=== PATIENT | female | born 1940 | race Caucasian/White ===

== ENCOUNTER → 2016-11-30 | Outpatient (CLI) | payer MEDICARE, OTHER ==
--- NOTE | 2016-11-30 17:01 | XR ---
EXAMINATION TYPE: XR chest 2V DATE OF EXAM: 11/30/2016 4:49 PM COMPARISON: Chest x-ray March 11, 2011. HISTORY: Malignant neoplasm of January per order. TECHNIQUE: Frontal and lateral views of the chest are obtained. FINDINGS: There is new right internal jugular Mediport catheter with tip in SVC. There is chronic rig ht pleural change without suspicious new focal air space opacity, pleural effusion, or pneumothorax s een. There is left basilar linear scarring or atelectasis. The cardiac silhouette size is within norm al limits. Multilevel spurring in the thoracic spine is redemonstrated. IMPRESSION: Left basilar linear scarring and/or atelectasis.
== END | disposition home or self-care (01) ==
LOC: RADXRMAIN 16:37
PROVIDERS: ATTEND Registered Nurse Oncology
DX: C06.0 Malignant neoplasm of cheek mucosa (principal); G89.3 Neoplasm related pain (acute) (chronic); C00.8 Malignant neoplasm of overlapping sites of lip; Z71.3 Dietary counseling and surveillance
CPT/HCPCS: 71020

== ENCOUNTER 2016-12-08 04:02 | Inpatient (IN) | payer MEDICARE, OTHER ==
[2016-12-08 04:42] LABS: Basophils % (A) 0 %; CH 29.1; Eosinophils # (A) 0.3 k/uL (0-0.7); Eosinophils % (A) 3 %; HCT 26.5 % (34.0-46.0); HDW 3.47; HGB 8.6 gm/dL (11.4-16.0); Luc # (Auto) 0.19; Luc % (Auto) 2; Lymphocytes # (A) 0.4 k/uL (1.0-4.8); Lymphocytes % (A) 4 %; MCH 28.5 pg (25.0-35.0); MCHC 32.3 g/dL (31.0-37.0); MCV 88.2 fL (80.0-100.0); Monocytes # (A) 0.7 k/uL (0-1.0); Monocytes % (A) 7 %; Neutrophils # (A) 8.8 k/uL (1.3-7.7); Neutrophils % (A) 85 %; Poikilocytosis Slight; RDW 15.9 % (11.5-15.5); WBC 10.4 k/uL (3.8-10.6); WBC (Perox) 10.85
[2016-12-08 04:51] LABS: ALT 27 U/L (9-52); AST 24 U/L (14-36); Alkaline Phosphatase 67 U/L (38-126); Anion Gap 8 mmol/L; Blood Urea Nitrogen 28 mg/dL (7-17); Calcium 9.4 mg/dL (8.4-10.2); Carbon Dioxide 32 mmol/L (22-30); Chloride 81 mmol/L (98-107); Glucose 114 mg/dL (74-99); Magnesium 1.3 mg/dL (1.6-2.3); Non-African American GFR(MDRD) >60 (>60 ml/min/1.73 sqM); Potassium 4.6 mmol/L (3.5-5.1); Sodium 121 mmol/L (137-145); Total Bilirubin 0.4 mg/dL (0.2-1.3); Total Protein 6.8 g/dL (6.3-8.2)
[2016-12-08 04:59] LABS: Partial Thromboplastin Time 23.6 sec (22.0-30.0); Prothrombin Time 10.3 sec (9.0-12.0)
--- NOTE | 2016-12-08 05:03 | ED ---
General Adult HPI - General Chief complaint: Shortness of Breath Stated complaint: SOB Time Seen by Provider: 12/08/16 04:05 Source: patient, RN notes reviewed Mode of arrival: ambulatory Limitations: no limitations - History of Present Illness Initial comments: This is a 76-year-old female with a past medical history significant for recurrent lip cancer. Patient states it's inoperable slipping doing chemotherapy and she's had one dose. Patient comes in today because she woke up tonight feeling as though she short of breath. Patient denies any fever or chills. Patient states she does have a cough but she's always producing mucus such that she is always coughing. Patient denies any chest pain or palpitation. Patient denies any injury or trauma. Patient denies headache patient denies numbness weakness - Related Data Allergies Allergy/AdvReac Type Severity Reaction Status Date / Time No Known Allergies Allergy Verified 12/08/16 04:10 Review of Systems ROS Statement: Those systems with pertinent positive or pertinent negative responses have been documented in the HPI. ROS Other: All systems not noted in ROS Statement are negative. Past Medical History Past Medical History: Hyperlipidemia, Hypertension Additional Past Medical History / Comment(s): mouth CA History of Any Multi-Drug Resistant Organisms: None Reported Past Surgical History: Heart Catheterization With Stent Additional Past Surgical History / Comment(s): Oral surgery Past Psychological History: No Psychological Hx Reported Smoking Status: Never smoker Past Alcohol Use History: None Reported Past Drug Use History: None Reported General Exam - General Exam Comments Initial Comments: GENERAL: Patient is well-developed and well-nourished. Patient is nontoxic and well- hydrated and is in mild distress. ENT: Neck is soft and supple. No significant lymphadenopathy is noted. Oropharynx is clear. Moist mucous membranes. Neck has full range of motion without eliciting any pain. Right side of the patient's lip is edematous and tender to palpation and swollen down to just underneath the mandible she states this is normal because of the recurrent cancer EYES: The sclera were anicteric and conjunctiva were pink and moist. Extraocular movements were intact and pupils were equal round and reactive to light. Eyelids were unremarkable. PULMONARY: Unlabored respirations. Good breath sounds bilaterally. No audible rales rhonchi or wheezing was noted. CARDIOVASCULAR: There is a regular rate and rhythm without any murmurs gallops or rubs. ABDOMEN: Soft and nontender with normal bowel sounds. No palpable organomegaly was noted. There is no palpable pulsatile mass. SKIN: Skin is clear with no lesions or rashes and otherwise unremarkable. NEUROLOGIC: Patient is alert and oriented x3. Cranial nerves II through XII are grossly intact. Motor and sensory are also intact. Normal speech, volume and content. Symmetrical smile. MUSCULOSKELETAL: Normal extremities with adequate strength and full range of motion. LYMPHATICS: No significant lymphadenopathy is noted PSYCHIATRIC: Normal psychiatric evaluation. Limitations: no limitations Course Vital Signs 12/08/16 04:04 Temperature 98.7 F Pulse Rate 90 Respiratory 20 Rate Blood Pressure 140/68 O2 Sat by Pulse 96 Oximetry Medical Decision Making - Medical Decision Making EKG shows normal sinus rhythm at 82 bpm NE interval is on a 58 QRS is 70 QT interval 362 QT C is 422. Patient's EKG shows no ST segment elevation or depression or T wave abnormalities are noted Chest x-ray is normal. - Lab Data Result diagrams: 12/08/16 04:30 12/08/16 04:30 Lab Results 12/08/16 12/08/16 12/08/16 Range/Units 04:30 04:30 04:30 WBC 10.4 (3.8-10.6) k/uL RBC 3.00 L (3.80-5.40) m/uL Hgb 8.6 L (11.4-16.0) gm/dL Hct 26.5 L (34.0-46.0) % MCV 88.2 (80.0-100.0) fL MCH 28.5 (25.0-35.0) pg MCHC 32.3 (31.0-37.0) g/dL RDW 15.9 H (11.5-15.5) % Plt Count 296 (150-450) k/uL Neutrophils % 85 % Lymphocytes % 4 % Monocytes % 7 % Eosinophils % 3 % Basophils % 0 % Neutrophils # 8.8 H (1.3-7.7) k/uL Lymphocytes # 0.4 L (1.0-4.8) k/uL Monocytes # 0.7 (0-1.0) k/uL Eosinophils # 0.3 (0-0.7) k/uL Basophils # 0.0 (0-0.2) k/uL Poikilocytosis Slight PT (9.0-12.0) sec INR (<1.1) APTT (22.0-30.0) sec D-Dimer (<0.60) mg/L FEU Sodium 121 L (137-145) mmol/L Potassium 4.6 (3.5-5.1) mmol/L Chloride 81 L (98-107) mmol/L Carbon Dioxide 32 H (22-30) mmol/L Anion Gap 8 mmol/L BUN 28 H (7-17) mg/dL Creatinine 0.67 (0.52-1.04) mg/dL Est GFR (MDRD) Af Amer >60 (>60 ml/min/1.73 sqM) Est GFR (MDRD) Non-Af >60 (>60 ml/min/1.73 sqM) Glucose 114 H (74-99) mg/dL Calcium 9.4 (8.4-10.2) mg/dL Magnesium 1.3 L (1.6-2.3) mg/dL Total Bilirubin 0.4 (0.2-1.3) mg/dL AST 24 (14-36) U/L ALT 27 (9-52) U/L Alkaline Phosphatase 67 (38-126) U/L Total Creatine Kinase 24 L (30-135) U/L CK-MB (CK-2) 0.7 (0.0-2.4) ng/mL CK-MB (CK-2) Rel Index 2.9 Troponin I <0.012 (0.000-0.034) ng/mL Total Protein 6.8 (6.3-8.2) g/dL Albumin 3.2 L (3.5-5.0) g/dL 12/08/16 Range/Units 04:30 WBC (3.8-10.6) k/uL RBC (3.80-5.40) m/uL Hgb (11.4-16.0) gm/dL Hct (34.0-46.0) % MCV (80.0-100.0) fL MCH (25.0-35.0) pg MCHC (31.0-37.0) g/dL RDW (11.5-15.5) % Plt Count (150-450) k/uL Neutrophils % % Lymphocytes % % Monocytes % % Eosinophils % % Basophils % % Neutrophils # (1.3-7.7) k/uL Lymphocytes # (1.0-4.8) k/uL Monocytes # (0-1.0) k/uL Eosinophils # (0-0.7) k/uL Basophils # (0-0.2) k/uL Poikilocytosis PT 10.3 (9.0-12.0) sec INR 1.0 (<1.1) APTT 23.6 (22.0-30.0) sec D-Dimer 0.37 (<0.60) mg/L FEU Sodium (137-145) mmol/L Potassium (3.5-5.1) mmol/L Chloride (98-107) mmol/L Carbon Dioxide (22-30) mmol/L Anion Gap mmol/L BUN (7-17) mg/dL Creatinine (0.52-1.04) mg/dL Est GFR (MDRD) Af Amer (>60 ml/min/1.73 sqM) Est GFR (MDRD) Non-Af (>60 ml/min/1.73 sqM) Glucose (74-99) mg/dL Calcium (8.4-10.2) mg/dL Magnesium (1.6-2.3) mg/dL Total Bilirubin (0.2-1.3) mg/dL AST (14-36) U/L ALT (9-52) U/L Alkaline Phosphatase (38-126) U/L Total Creatine Kinase (30-135) U/L CK-MB (CK-2) (0.0-2.4) ng/mL CK-MB (CK-2) Rel Index Troponin I (0.000-0.034) ng/mL Total Protein (6.3-8.2) g/dL Albumin (3.5-5.0) g/dL Disposition Clinical Impression: Dyspnea, Hyponatremia, Anemia, Hypomagnesemia Disposition: ADMITTED IP TO [facility] Time of Disposition: 05:31
[2016-12-08 05:04] LABS: Creatine Kinase 24 U/L (30-135)
[2016-12-08 05:17] LABS: Creatine Kinase MB 0.7 ng/mL (0.0-2.4); Troponin I <0.012 ng/mL (0.000-0.034)
--- NOTE | 2016-12-08 05:21 | XR ---
EXAM: XR Chest, 2 Views CLINICAL HISTORY: Reason: difficulty breathing TECHNIQUE: Frontal and lateral views of the chest. COMPARISON: No relevant prior studies available. FINDINGS: Lungs: Unremarkable. No consolidation. Pleural space: Unremarkable. No pneumothorax. Heart: Unremarkable. No cardiomegaly. Mediastinum: Unremarkable. Bones/joints: Unremarkable. Vasculature: Right chest port with tip in the SVC at the level of the right hilum. IMPRESSION: No acute cardiopulmonary disease.
[2016-12-08] MEDS ORDERED: MAGNESIUM SULFATE-D5W PMX 1 GM in DEXTROSE/WATER 1 100ML.BAG IVPB ONE (05:32)
[2016-12-08] MEDS ORDERED: SODIUM CHLORIDE 0.9% 1,000 ML IV ONE (05:34)
[2016-12-08] MEDS ORDERED: HYDROcodone/APAP 10-325MG 1 EACH TAB PO STA (07:14)
[2016-12-08] MEDS ORDERED: guaiFENesin SYRUP 100MG/5ML 200 MG/10 ML CUP PEG/G-TUBE PRN (08:30)
[2016-12-08] MEDS ORDERED: HYDROcodone/APAP 10-325MG 1 EACH TAB PEG/G-TUBE SCH (08:30)
[2016-12-08] MEDS: ONDANSETRON 4 MG/2 ML VIAL IVP PRN ×2 (08:50→20:58)
[2016-12-08] MEDS: HYDROcodone/APAP 10-325MG 1 EACH TAB PEG/G-TUBE PRN ×3 (11:28→22:47)
[2016-12-08 11:35] LABS: Glucose,Whole Blood 146 mg/dL (75-99)
[2016-12-08] MEDS: FERROUS SULFATE ORAL ELIXIR 300 MG/5 ML CUP PEG/G-TUBE SCH ×2 (11:44→20:35)
[2016-12-08] MEDS: POTASSIUM CHLORIDE ORAL LIQUID 40 MEQ/30 ML CUP PEG/G-TUBE SCH ×2 (11:44→20:35)
[2016-12-08] MEDS: SCOPOLAMINE 1.5MG/72HR PATCH TRANSDERM SCH (11:45)
[2016-12-08] MEDS: OXYBUTYNIN CHLORIDE 5 MG TAB PEG/G-TUBE SCH ×2 (11:45→20:35)
[2016-12-08] MEDS: ASPIRIN 325 MG TAB PEG/G-TUBE SCH (11:45)
[2016-12-08] MEDS: MAGNESIUM OXIDE 400 MG TAB PEG/G-TUBE SCH ×2 (11:45→20:35)
[2016-12-08] MEDS: CARVEDILOL 3.125 MG TAB PEG/G-TUBE SCH ×2 (11:45→17:40)
[2016-12-08] MEDS: LEVOTHYROXINE 75 MCG TAB PEG/G-TUBE SCH (11:46)
--- NOTE | 2016-12-08 12:08 | P.HPIM ---
History of Present Illness H&P Date: 12/08/16 Chief Complaint: Shortness of breath This is a 76-year-old female, patient of [facility]. Patient has a known past medical history of lip carcinoma in which she is on chemotherapy. And has received radiation treatment. She also has a known history of iron deficiency anemia, hyperlipidemia, hypertension, coronary artery disease with cardiac stent, diabetes mellitus, hypothyroidism and hypertension. Patient presents to the emergency room with complaints of shortness of breath that started last night. She was unable to get comfortable try to lay on the couch was still having shortness of breath. She does admit to having a cough at times but mostly to clear the secretions of her mouth. She denies any fevers chills or sweats. Denies any chest pain. Denies any nausea or vomiting. Denies any bowel movement changes or urinary symptoms. She is unable to take anything oral everything goes through her PEG tube nutrition-morataya and medications. D-dimer was negative. Chest x-ray negative. White count normal at 10.4. Patient reports that her chemo medication side effect is shortness of breath and therefore she came into the emergency room for further evaluation. Oncology has been consulted. Oncology had stopped the chemo medication. Patient shortness of breath is at has improved. She was hyponatremic with a sodium of 121 and hypomagnesemia lesion level I.3. She received magnesium supplement and is currently on IV fluids. Hemoglobin is 8.6. She denies any active bleeding. Denies any bright red blood in stools or black tarry stools. She does report that her stools are usually black because she takes iron supplement. And it appears to be chronic for patient. I do not know her baseline. However she is on iron supplement. And has been receiving chemo treatments for her cancer. She reports having colonoscopy about 5 years ago that was negative. Review of Systems Please refer to HPI otherwise unremarkable Past Medical History Past Medical History: Coronary Artery Disease (CAD), Cancer, Chest Pain / Angina , Diabetes Mellitus, Hyperlipidemia, Hypertension, Osteoarthritis (OA), Thyroid Disorder Additional Past Medical History / Comment(s): Recurrent lip cancer, developed spot in R cheek which became a mass-has he 35 radiation txs and 9 chemo tx in 2013, cancer is now in jaw bone too-has had 2 lip surgeries and is currently received 1 dose of Keytruda and was due today for 2nd tx, NPO, NIDDM, hypothyroid. History of Any Multi-Drug Resistant Organisms: None Reported Past Surgical History: Heart Catheterization With Stent Additional Past Surgical History / Comment(s): Lower lip surgery x 2 with second surgery requiring skin graft from L thigh, peg tube placement, mediport, colonoscopy-normal, all teeth removed r/t radiation tx, PCI with stent Past Anesthesia/Blood Transfusion Reactions: No Reported Reaction Date of Last Stent Placement:: 02/13/11 Past Psychological History: No Psychological Hx Reported Additional Psychological History / Comment(s): Pt resides with a daughter, Ana who is also her rural mail contractor. Ana works 5 minutes from home-dayshift and calls at lunch time to check on pt. Pt no longer drives, natalie takes her to [employer]. She uses no assistive devices. No home care. Pt has continuous tube feedings of glucerna (5 cans a day) which infuse from 7pm-11am. Smoking Status: Never smoker Past Alcohol Use History: None Reported Past Drug Use History: None Reported - Past Family History Father Family Medical History: Congestive Heart Failure (CHF) Additional Family Medical History / Comment(s): Father of CHF at the age of 75yrs. Mother Family Medical History: Cancer, Vascular Disorder Additional Family Medical History / Comment(s): Mother was a breast cancer survivor. She while having surgery for an abdominal aneurysm at the age of 78yrs. Medications and Allergies Home Medications Medication Instructions Recorded Confirmed Type Aspirin 325 mg PEG/G-TUBE DAILY 12/08/16 12/08/16 History Carvedilol [Coreg] 3.125 mg PEG/G-TUBE BID 12/08/16 12/08/16 History Cholecalciferol [Vitamin D3] 5,000 unit PEG/G-TUBE DAILY 12/08/16 12/08/16 History Ferrous Sulfate [Feosol] 325 mg PEG/G-TUBE BID 12/08/16 12/08/16 History Hydrocodone/Acetaminophen [[place] 1 tab PEG/G-TUBE Q4H 12/08/16 12/08/16 History 10-325] Levothyroxine Sodium [Synthroid] 75 mcg PEG/G-TUBE DAILY 12/08/16 12/08/16 History Lisinopril-Hctz 20-25 mg 0.5 tab PEG/G-TUBE QAM 12/08/16 12/08/16 History [Zestoretic 20-25] Magnesium Oxide 400 mg PEG/G-TUBE BID 12/08/16 12/08/16 History Mucinex Liquid 10 ml PEG/G-TUBE DAILY PRN 12/08/16 12/08/16 History Ondansetron HCl [Zofran Oral Soln] 8 mg PEG/G-TUBE BID 12/08/16 12/08/16 History Ondansetron HCl [Zofran] 8 mg PEG/G-TUBE DAILY PRN 12/08/16 12/08/16 History Oxybutynin Chloride 5 mg PEG/G-TUBE BID 12/08/16 12/08/16 History Potassium Chloride [Klor-Con] 20 meq PEG/G-TUBE BID 12/08/16 12/08/16 History Simvastatin [Zocor] 40 mg PEG/G-TUBE HS 12/08/16 12/08/16 History fentaNYL 25MCG/HR PATCH [Duragesic 1 patch TRANSDERM Q72H 12/08/16 12/08/16 History 25MCG/HR] metFORMIN HCL [Glucophage] 500 mg PEG/G-TUBE HS 12/08/16 12/08/16 History Allergies Allergy/AdvReac Type Severity Reaction Status Date / Time No Known Allergies Allergy Verified 12/08/16 07:26 Physical Exam Vitals: Vital Signs Temp Pulse Pulse Resp BP BP Pulse Ox 12/08/16 07:00 97.3 F L 92 16 157/65 99 12/08/16 06:08 83 16 164/79 96 Intake and Output 12/07/16 12/08/16 12/08/16 22:59 06:59 14:59 Other: Voiding Method Toilet Weight 53.977 kg Patient Weight 12/09/16 06:59 Weight 53.977 kg Mouth: Right side of patient's mouth and cheek are swollen. Patient has difficulty opening her mouth. Head normocephalic Neck supple Lungs clear to auscultation bilaterally no wheezing or crackles Heart regular rate and rhythm S1-S2, no rub or gallop Abdomen is soft nontender nondistended positive bowel sounds no hepatosplenomegaly Extremities no edema Neuro alert and orientated to 3 Results CBC & Chem 7: 12/08/16 04:30 12/08/16 04:30 Labs: Abnormal Lab Results - Last 24 Hours (Table) 12/08/16 Range/Units 11:20 POC Glucose (mg/dL) 146 H (75-99) mg/dL Thrombosis Risk Factor Assmnt - Choose All That Apply Any of the Below Risk Factors Present?: Yes Other Risk Factors: Yes Each Risk Factor Represents 2 Points: Malignancy Each Risk Factor Represents 3 Points: Age 75 years or older Other congenital or acquired thrombophilia - If yes, enter type in comment: No Thrombosis Risk Factor Assessment Total Risk Factor Score: 5 Thrombosis Risk Factor Assessment Level: High Risk Assessment and Plan Plan: 1. Shortness of breath: Exact etiology unclear. Possibly related to chemo medication. Chest x-ray negative. D-dimer negative. Symptoms have shown improvement. 2. Hyponatremia: Sodium 121 on admission. Zestoretic on hold. Also could be a side effect from her chemo medication. Patient receiving IV fluids. Repeat labs in a.m. 3. 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 Oncology consulted. Chemo treatment currently placed on hold. will await further away oncology recommendations 4. Hypomagnesemia: Patient receiving magnesium supplement. Repeat labs in a.m. 5. Anemia with known iron deficiency anemia and possibly chemo-induced anemia. Continue iron supplement. Continue to monitor hemoglobin. 6. Hypochloremia: Continue monitor chloride level. Zestoretic on hold 7. Diabetes mellitus type 2: Metformin on hold. Add sliding scale coverage with Accu-Cheks every before meals and at bedtime 8. Essential hypertension: Blood pressure stable continue with Coreg 9. Hyperlipidemia continue Lipitor 10. History of coronary artery disease with previous cardiac stents 11. Hypothyroidism continue Synthroid DVT prophylaxis SCDs Resume tube feedings and home medications Time with Patient: Greater than 30 (Greater than 50% of the total time spent in counseling and coordination of care.I performed an examination of the patient and discussed their management with the physician Trouble Clerk. I have reviewed the Physician Trouble Clerk's notes and agree with the documented findings and plan of care)
[2016-12-08] MEDS: CHOLECALCIFEROL 1,000 UNIT TAB PEG/G-TUBE SCH (13:17)
[2016-12-08] MEDS: SUCRALFATE 1 GM TAB PO SCH ×3 (13:18→20:34)
[2016-12-08] MEDS: INSULIN LISPRO (humaLOG) 300 UNIT/3 ML VIAL SQ SCH ×3 (13:52→21:44)
[2016-12-08] MEDS: SODIUM CHLORIDE 0.9% 1,000 ML IV SCH (15:43)
[2016-12-08 16:21] LABS: Basophils % (A) 0 %; CH 28.8; CHCM 33.3; Eosinophils # (A) 0.2 k/uL (0-0.7); Eosinophils % (A) 3 %; HCT 26.7 % (34.0-46.0); HDW 3.65; HGB 9.1 gm/dL (11.4-16.0); Hypochromasia Slight; Luc % (Auto) 3; Lymphocytes # (A) 0.3 k/uL (1.0-4.8); Lymphocytes % (A) 4 %; MCH 29.5 pg (25.0-35.0); MCV 86.7 fL (80.0-100.0); Mean Platelet Volume 6.6; Monocytes # (A) 0.6 k/uL (0-1.0); Monocytes % (A) 8 %; Neutrophils # (A) 6.2 k/uL (1.3-7.7); Neutrophils % (A) 82 %; Poikilocytosis Slight; RBC 3.07 m/uL (3.80-5.40); RDW 15.4 % (11.5-15.5); WBC 7.5 k/uL (3.8-10.6); WBC (Perox) 7.51
--- NOTE | 2016-12-08 16:30 | P.CONS ---
History of Present Illness - Reason for Consult Consult date: 12/08/16 anemia, hyponatremia Requesting physician: Sammy Wilson - Chief Complaint ELIZABETH - History of Present Illness Ms. Mathias is a pt well known to our practice who presented in 07/28 with raised , inflamed areas involving her right buccal mucosa, biopsies revealed fungal infection/infestation, she was treated for the same with improvement but within a few months the mass recurred, repeat biopsies in 11/27 revealed near resolution of the fungal infestation but now development of atypia, photodynamic therapy was recommended but the pt could not afford it. She had care at [facility] and then she subsequently transferred to Dr. Vázquez at [facility]. She had progression with development of raised, ulcerated plaque like growths involving the upper and lower lips on the right. 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 She was then referred to Dr. Sweeney for further evaluation and recommendations. Staging PET revealed activity medial to the mandible and possibly in 1-2 nodes in the rt superior cervical chain. She had extraction of carious teeth on the right and then was started on weekly cisplatin with concurrent radiation 05/05/16 and she completed treatment around 06/24/16, pt overall had poor tolerance to therapy requiring hydration and electrolyte replacement. Repeat PET scan on 08/12/2016 was reported as single area of persistent disease at right maxillary sinus. Unfortunately she developed recurrent disease in September 2016 when she presented with worsening right buccal ulcer. Dr. Vázquez evaluated her, CT scan of neck on 10/03/2016 revealed 6 cm area of ulceration in right buccal mucosa extending to oral tongue and bilateral cervical nodes. Biopsy on 10/14/2016 which confirmed recurrent/persistent disease, felt unresectable. She was started on nivolumab and has had 2 cycles of treatment. She has PEG tube as dysphagia/odynophagia is severe, she does not take anything PO, she cannot manage her secretions and has to expectorate all secretions. Pt was having ELIZABETH that brought her to the hospital, she denied fever, she c/o pain in the area of the tumor but admits that the swelling is improved, she has "burning" in her throat and she will vomit at times, no abd pain or cramping, PEG tube is functioning, denies diarrhea or constipation. Review of Systems All systems: negative Constitutional: Reports as per HPI Past Medical History Past Medical History: Coronary Artery Disease (CAD), Cancer, Chest Pain / Angina , Diabetes Mellitus, Hyperlipidemia, Hypertension, Osteoarthritis (OA), Thyroid Disorder Additional Past Medical History / Comment(s): Recurrent lip cancer, developed spot in R cheek which became a mass-has he 35 radiation txs and 9 chemo tx in 2013, cancer is now in jaw bone too-has had 2 lip surgeries and is currently received 1 dose of Keytruda and was due today for 2nd tx, NPO, NIDDM, hypothyroid. History of Any Multi-Drug Resistant Organisms: None Reported Past Surgical History: Heart Catheterization With Stent Additional Past Surgical History / Comment(s): Lower lip surgery x 2 with second surgery requiring skin graft from L thigh, peg tube placement, mediport, colonoscopy-normal, all teeth removed r/t radiation tx, PCI with stent Past Anesthesia/Blood Transfusion Reactions: No Reported Reaction Date of Last Stent Placement:: 02/13/11 Past Psychological History: No Psychological Hx Reported Additional Psychological History / Comment(s): Pt resides with a daughter, Ana who is also her precision jig grinder. Ana works 5 minutes from home-dayshift and calls at lunch time to check on pt. Pt no longer drives, natalie takes her to [employer]. She uses no assistive devices. No home care. Pt has continuous tube feedings of glucerna (5 cans a day) which infuse from 7pm-11am. Smoking Status: Never smoker Past Alcohol Use History: None Reported Past Drug Use History: None Reported - Past Family History Father Family Medical History: Congestive Heart Failure (CHF) Additional Family Medical History / Comment(s): Father of CHF at the age of 75yrs. Mother Family Medical History: Cancer, Vascular Disorder Additional Family Medical History / Comment(s): Mother was a breast cancer survivor. She while having surgery for an abdominal aneurysm at the age of 78yrs. Medications and Allergies Home Medications Medication Instructions Recorded Confirmed Type Aspirin 325 mg PEG/G-TUBE DAILY 12/08/16 12/08/16 History Carvedilol [Coreg] 3.125 mg PEG/G-TUBE BID 12/08/16 12/08/16 History Cholecalciferol [Vitamin D3] 5,000 unit PEG/G-TUBE DAILY 12/08/16 12/08/16 History Ferrous Sulfate [Feosol] 325 mg PEG/G-TUBE BID 12/08/16 12/08/16 History Hydrocodone/Acetaminophen [[place] 1 tab PEG/G-TUBE Q4H 12/08/16 12/08/16 History 10-325] Levothyroxine Sodium [Synthroid] 75 mcg PEG/G-TUBE DAILY 12/08/16 12/08/16 History Lisinopril-Hctz 20-25 mg 0.5 tab PEG/G-TUBE QAM 12/08/16 12/08/16 History [Zestoretic 20-25] Magnesium Oxide 400 mg PEG/G-TUBE BID 12/08/16 12/08/16 History Mucinex Liquid 10 ml PEG/G-TUBE DAILY PRN 12/08/16 12/08/16 History Ondansetron HCl [Zofran Oral Soln] 8 mg PEG/G-TUBE BID 12/08/16 12/08/16 History Ondansetron HCl [Zofran] 8 mg PEG/G-TUBE DAILY PRN 12/08/16 12/08/16 History Oxybutynin Chloride 5 mg PEG/G-TUBE BID 12/08/16 12/08/16 History Potassium Chloride [Klor-Con] 20 meq PEG/G-TUBE BID 12/08/16 12/08/16 History Simvastatin [Zocor] 40 mg PEG/G-TUBE HS 12/08/16 12/08/16 History fentaNYL 25MCG/HR PATCH [Duragesic 1 patch TRANSDERM Q72H 12/08/16 12/08/16 History 25MCG/HR] metFORMIN HCL [Glucophage] 500 mg PEG/G-TUBE HS 12/08/16 12/08/16 History Allergies Allergy/AdvReac Type Severity Reaction Status Date / Time No Known Allergies Allergy Verified 12/08/16 07:26 Physical Exam Vitals: Vital Signs Temp Pulse Pulse Resp BP BP Pulse Ox 12/08/16 15:00 98.2 F 76 18 141/67 98 12/08/16 07:00 97.3 F L 92 16 157/65 99 12/08/16 06:08 83 16 164/79 96 Intake and Output 12/08/16 12/08/1617 06:59 14:59 22:59 Other: Voiding Method Toilet Weight 53.977 kg Patient Weight 12/09/16 06:59 Weight 53.977 kg - Constitutional General appearance: average body habitus, cooperative, no acute distress - EENT irregular, hard mass, right cheek and maxillary area, actually smaller then prior to treatment, oral mucosa is ulcerated, no bleeding. Pt has impaired speech due to mass and cannot manage her oral secretions, she is unable to tolerate any oral intake - Respiratory Respiratory: left: rales (base), bilateral: diminished - Cardiovascular Rhythm: regular Heart sounds: normal: S1, S2 leg Peripheral Edema: bilateral: Trace - Gastrointestinal PEG tube functioning General gastrointestinal: normal bowel sounds, soft - Neurologic Neurologic: CNII-XII intact - Musculoskeletal Musculoskeletal: generalized weakness - Psychiatric Psychiatric: A&O x's 3, appropriate affect, intact judgment & insight Results CBC & Chem 7: 12/08/16 04:30 12/08/16 04:30 Labs: Abnormal Lab Results - Last 24 Hours (Table) 12/08/16 Range/Units 11:20 POC Glucose (mg/dL) 146 H (75-99) mg/dL Assessment and Plan (1) Anemia Narrative/Plan: Anemia lab work up ordered, it has not been done within the last 6 months. No acute intervention at this time. Status: Chronic (2) Hyponatremia Narrative/Plan: Pt Na+ was normal up until recently. Dietitian consulted, look for recommendations and if maintenance of electrolytes can be achieved with changes in PEG tube feeding formulation. Status: Acute (3) Squamous cell carcinoma, keratinizing Narrative/Plan: Oral cavity. Pt is s/p 2 cycles of immunotherapy with nivolumab. Treatment on hold until recovery from current acute condition. Status: Chronic
[2016-12-08 17:13] LABS: Glucose,Whole Blood 129 mg/dL (75-99)
[2016-12-08 18:44] LABS: Hemoglobin A1C 4.8 % (4.2-6.1)
[2016-12-08 20:03] LABS: Glucose,Whole Blood 140 mg/dL (75-99)
[2016-12-08] MEDS: ATORVASTATIN 20 MG TAB PEG/G-TUBE SCH (20:34)
[2016-12-09] MEDS: SODIUM CHLORIDE 0.9% 1,000 ML IV SCH ×3 (00:06→16:39)
[2016-12-09] MEDS: HYDROcodone/APAP 10-325MG 1 EACH TAB PEG/G-TUBE PRN ×5 (02:57→19:59)
[2016-12-09 07:32] LABS: Glucose,Whole Blood 155 mg/dL (75-99)
[2016-12-09 07:42] LABS: Basophils % (A) 0 %; CH 29.2; CHCM 32.6; Eosinophils # (A) 0.2 k/uL (0-0.7); Eosinophils % (A) 3 %; HCT 24.3 % (34.0-46.0); HDW 3.51; HGB 8.3 gm/dL (11.4-16.0); Hypochromasia Slight; Luc # (Auto) 0.13; Luc % (Auto) 2; Lymphocytes # (A) 0.3 k/uL (1.0-4.8); Lymphocytes % (A) 4 %; MCH 30.6 pg (25.0-35.0); MCHC 34.1 g/dL (31.0-37.0); MCV 89.6 fL (80.0-100.0); Mean Platelet Volume 6.5; Monocytes # (A) 0.5 k/uL (0-1.0); Monocytes % (A) 8 %; Neutrophils # (A) 5.2 k/uL (1.3-7.7); Neutrophils % (A) 82 %; Poikilocytosis Slight; RBC 2.71 m/uL (3.80-5.40); RDW 15.5 % (11.5-15.5); WBC 6.3 k/uL (3.8-10.6); WBC (Perox) 6.87
[2016-12-09 07:47] LABS: ALT 27 U/L (9-52); AST 22 U/L (14-36); Alkaline Phosphatase 66 U/L (38-126); Anion Gap 4 mmol/L; Blood Urea Nitrogen 16 mg/dL (7-17); Calcium 8.9 mg/dL (8.4-10.2); Carbon Dioxide 33 mmol/L (22-30); Chloride 92 mmol/L (98-107); Glucose 136 mg/dL (74-99); Magnesium 1.4 mg/dL (1.6-2.3); Non-African American GFR(MDRD) >60 (>60 ml/min/1.73 sqM); Potassium 4.2 mmol/L (3.5-5.1); Sodium 129 mmol/L (137-145); Total Bilirubin 0.4 mg/dL (0.2-1.3); Total Protein 6.6 g/dL (6.3-8.2)
[2016-12-09 08:00] LABS: Reticulocyte % 4.2 % (0.5-2.0)
[2016-12-09] MEDS: OXYBUTYNIN CHLORIDE 5 MG TAB PEG/G-TUBE SCH ×2 (08:07→22:14)
[2016-12-09] MEDS: POTASSIUM CHLORIDE ORAL LIQUID 40 MEQ/30 ML CUP PEG/G-TUBE SCH ×2 (08:07→22:14)
[2016-12-09] MEDS: MAGNESIUM OXIDE 400 MG TAB PEG/G-TUBE SCH ×2 (08:07→22:14)
[2016-12-09] MEDS: ASPIRIN 325 MG TAB PEG/G-TUBE SCH (08:07)
[2016-12-09] MEDS: LEVOTHYROXINE 75 MCG TAB PEG/G-TUBE SCH (08:07)
[2016-12-09] MEDS: SUCRALFATE 1 GM TAB PO SCH ×4 (08:07→22:14)
[2016-12-09] MEDS: CARVEDILOL 3.125 MG TAB PEG/G-TUBE SCH ×2 (08:08→18:10)
[2016-12-09] MEDS: INSULIN LISPRO (humaLOG) 300 UNIT/3 ML VIAL SQ SCH ×4 (08:11→22:18)
[2016-12-09] MEDS: MAGNESIUM SULFATE-D5W PMX 1 GM in DEXTROSE/WATER 1 100ML.BAG IVPB SCH ×2 (10:04→11:16)
[2016-12-09 10:39] LABS: Iron 11 ug/dL (37-170)
[2016-12-09 10:49] LABS: % Iron Saturation 4.1 % (20-50); Total Iron Binding Capacity 267 ug/dL (265-497)
--- NOTE | 2016-12-09 11:11 | P.PN ---
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 She has received both chemo and radiation treatments. Currently chemotherapy on hold. Oncology following. She presented to the emergency room with complaints of shortness of breath. Patient now saying she also had some heart palpitations. She reports another episode of shortness of breath around 2 :00 this morning. Cardiology will be consulted and she'll be placed on telemetry for monitoring of any arrhythmias. Patient denies any chest pain. Denies any nausea or vomiting. Denies any bowel movement changes or urinary symptoms. She is tolerating PEG tube feedings. Objective - Vital Signs Vital signs: Vital Signs Temp 99.2 F 12/09/16 07:00 Pulse 91 12/09/16 07:00 Resp 16 12/09/16 07:00 BP 167/77 12/09/16 07:00 Pulse Ox 96 12/09/16 07:00 Intake & Output 12/08/16 12/09/16 12/09/16 18:59 06:59 18:59 Intake Total 165 Balance 165 Weight 53.977 kg Intake: Tube Feeding 165 Other: Voiding Method Toilet Toilet # Voids 1 - Exam Head normocephalic. Facial deformity on the right side of her face due to her cancer Neck supple Lungs clear to auscultation bilaterally no wheezing or crackles Heart regular rate and rhythm S1-S2, no rub or gallop Abdomen is soft nontender nondistended positive bowel sounds no hepatosplenomegaly Extremities no edema Neuro alert and orientated to 3 - Labs CBC & Chem 7: 12/09/16 07:14 12/09/16 07:14 Labs: Abnormal Lab Results - Last 24 Hours (Table) 12/08/16 12/08/16 12/08/16 Range/Units 11:20 15:52 17:11 RBC 3.07 L (3.80-5.40) m/uL Hgb 9.1 L (11.4-16.0) gm/dL Hct 26.7 L (34.0-46.0) % Lymphocytes # 0.3 L (1.0-4.8) k/uL Retic Count (0.5-2.0) % Sodium (137-145) mmol/L Chloride (98-107) mmol/L Carbon Dioxide (22-30) mmol/L Glucose (74-99) mg/dL POC Glucose (mg/dL) 146 H 129 H (75-99) mg/dL Magnesium (1.6-2.3) mg/dL Albumin (3.5-5.0) g/dL 12/08/16 12/09/16 12/09/16 Range/Units 20:02 07:14 07:14 RBC 2.71 L (3.80-5.40) m/uL Hgb 8.3 L (11.4-16.0) gm/dL Hct 24.3 L (34.0-46.0) % Lymphocytes # 0.3 L (1.0-4.8) k/uL Retic Count (0.5-2.0) % Sodium 129 L (137-145) mmol/L Chloride 92 L (98-107) mmol/L Carbon Dioxide 33 H (22-30) mmol/L Glucose 136 H (74-99) mg/dL POC Glucose (mg/dL) 140 H (75-99) mg/dL Magnesium 1.4 L (1.6-2.3) mg/dL Albumin 3.1 L (3.5-5.0) g/dL 12/09/16 12/09/16 Range/Units 07:14 07:18 RBC (3.80-5.40) m/uL Hgb (11.4-16.0) gm/dL Hct (34.0-46.0) % Lymphocytes # (1.0-4.8) k/uL Retic Count 4.2 H (0.5-2.0) % Sodium (137-145) mmol/L Chloride (98-107) mmol/L Carbon Dioxide (22-30) mmol/L Glucose (74-99) mg/dL POC Glucose (mg/dL) 155 H (75-99) mg/dL Magnesium (1.6-2.3) mg/dL Albumin (3.5-5.0) g/dL Microbiology - Last 24 Hours (Table) 12/08/16 05:46 Blood Culture - Preliminary Blood No Growth after 24 hours Assessment and Plan Plan: 1. Shortness of breath: Exact etiology unclear. Patient also complaining of some heart palpitations and another episode of shortness of breath around 2:00 this morning. Symptoms now resolved. Place patient on telemetry to monitor for cardiac arrhythmia. Consult cardiology. Chest x-ray negative. D-dimer negative. 2. Hyponatremia: Sodium 121 on admission. Zestoretic on hold. Also could be a side effect from her chemo medication. Patient receiving IV fluids. Repeat labs in a.m. sodium level up to 129. Continue to monitor 3. 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 Oncology consulted. Chemo treatment currently placed on hold. will await further away oncology recommendations 4. Hypomagnesemia: Magnesium 1.4. Patient will receive 2 g of magnesium sulfate. Repeat magnesium level in a.m. 5. Anemia with known iron deficiency anemia and possibly chemo-induced anemia. Continue iron supplement. Continue to monitor hemoglobin. Hemoglobin 8.3. Oncology has ordered further blood work with iron studies and B12 level 6. Hypochloremia: Continue monitor chloride level. Zestoretic on hold. Showing improvement with fluids 7. Diabetes mellitus type 2: Metformin on hold. Add sliding scale coverage with Accu-Cheks every before meals and at bedtime 8. Essential hypertension: Blood pressure stable continue with Coreg 9. Hyperlipidemia continue Lipitor 10. History of coronary artery disease with previous cardiac stents 11. Hypothyroidism continue Synthroid DVT prophylaxis SCDs Continue tube feedings for nutrition support I performed an examination of the patient and discussed their management with the physician General Partner. I have reviewed the Physician General Partner's notes and agree with the documented findings and plan of care
[2016-12-09 11:30] LABS: Vitamin B12 959 pg/mL
[2016-12-09 11:43] LABS: Glucose,Whole Blood 173 mg/dL (75-99)
[2016-12-09] MEDS: FERROUS SULFATE ORAL ELIXIR 300 MG/5 ML CUP PEG/G-TUBE SCH ×2 (12:23→22:44)
[2016-12-09] MEDS: CHOLECALCIFEROL 1,000 UNIT TAB PEG/G-TUBE SCH (12:23)
--- NOTE | 2016-12-09 13:43 | CONS ---
DATE OF CONSULTATION: REASON FOR CONSULTATION: Increasing shortness of breath. The patient admitted to the hospital, 76 -year-old known patient of multiple medical problems including coronary artery disease, hypertension, hyperlipidemia, diabetes, hypothyroidism, hypertension, history of lip cancer, the patient is on gastric tube feeding and gastrostomy tube feeding. Unable to take anything by mouth. Patient is on chemotherapy. Denies any chest pain or pressure or orthopnea. Main complaint is nonproductive cough and shortness of breath. D. dimer on admission noted to be normal, but on account of chemotherapy, suspicion for thromboembolic is very high, so we will probably will do an echocardiogram to assess LV function. If the LV function shows right heart pressures are elevated, we will try to get CT of the chest ( ) kidney functions are within normal limits. Patient is also anemic but could be contributing to her shortness of breath with hemoglobin 9 and reticulocyte count is elevated. The patient is high ( ) so we cannot tell whether she is having addition bleeding in the gut, problem of elevated reticulocyte count of 4 always indicative of bleeding somewhere in the body most likely gut. Patient PEG tube in place for feeding purposes. Patient's WBC count on admission was mildly elevated that dropped down to normal. Patient does not seem to be having any heart failure problems. Past history remarkable for coronary artery disease, hyperlipidemia, hypertension, diabetes. History of skin cancer, ( ) treated with chemotherapy, which has been stopped. Patient's shortness of breath is somewhat improved. Patient follows with my associate, Dr. Crocker in the office. Stent placement done February 2011. Current medications prior to admission include: 1. Aspirin 325 mg p.o. daily. 2. Carvedilol 3.125 mg p.o. daily. 3. Calciferol 500 units per PEG tube everything is by PEG tube. All the oral pills and medications. 4. Patient is on [place]. 5. Levothyroxine 75 mcg. 6. Lisinopril has been on hold because of hyponatremia. 7. Magnesium 400 mg per PEG tube. 8. Zofran. 9. Oxybutynin. 10. Potassium. 11. Klor-Con 20 milliequivalents b.i.d. per PEG tube. 12. Simvastatin 40 mg. 13. Fentanyl patch 25 mcg every three days. 14. Metformin 500 mg. ALLERGIES: None mentioned. Physical examination revealed a chronically looking 76-year-old female not in acute distress, oriented x3 with a pulse rate of 70 beats per minute and regular, blood pressure 157/65. Respirations of 20. HEENT: Head normocephalic. HEENT unremarkable. Neck is supple. No JVD. CARDIAC EXAMINATION: S1 and S2. No gallops or murmurs are noted. Lungs are clinically to auscultation and percussion. ABDOMEN: Soft. No organomegaly. Active bowel sounds. EXTREMITIES: No pedal edema. OPERA SINGER examination: Grossly within normal limits. EKG revealed normal sinus rhythm, normal ST-T waves. Kidney functions are within normal limits. ASSESSMENT: 1. Shortness of breath, need to rule out possibility of pulmonary embolism. 2. Evidence of congestive heart failure, hyponatremia which has improved from 121 to 129 ( ) continued current therapy. 3. Status post liver cancer and on PEG tube feedings. 4. Hypomagnesemia which is being corrected. 5. Diabetes mellitus. 6. Hypertension. 7. Coronary artery disease, stable without any anginal symptoms. 8. Hypothyroidism. Patient is on DVT prophylaxis. Will get an echocardiogram. If the echocardiogram shows elevated right heart pressures, we will consider CT of the chest to rule out pulmonary embolism. Continue supportive care. Thanks again for this kind referral.
[2016-12-09] MEDS: SODIUM FERRIC GLUCONAT-SUCROSE 125 MG in SODIUM CHLORIDE 0.9% 100 ML IVPB SCH (13:54)
[2016-12-09] MEDS: ONDANSETRON 4 MG/2 ML VIAL IVP PRN (13:54)
--- NOTE | 2016-12-09 16:14 | P.PN ---
Subjective Principal diagnosis: SOB, squamous cell head/neck cancer Pt seen today in follow up, her lip hurts more today and feels more swollen, she has had 2 episodes where she has difficulty breathing, she states that she has to calm herself down and her breathing gets better, the burning in her throat was less, she has only had 1 episode of "spitting up". Objective - Vital Signs Vital signs: Vital Signs Temp 99.2 F 12/09/16 07:00 Pulse 91 12/09/16 07:00 Resp 16 12/09/16 07:00 BP 167/77 12/09/16 07:00 Pulse Ox 96 12/09/16 07:00 Intake & Output 12/08/16 12/09/16 12/09/16 18:59 06:59 18:59 Intake Total 165 220 Balance 165 220 Weight 53.977 kg Intake: Tube Feeding 165 220 Other: Voiding Method Toilet Toilet Toilet # Voids 1 - Constitutional General appearance: Present: average body habitus, cooperative, no acute distress - EENT EENT Comment(s): right upper lip more swollen then yesterday, deep rubor, warm, very tender - Respiratory Respiratory: bilateral: CTA - Cardiovascular Heart sounds: normal: S1, S2 - Peripheral edema leg Peripheral Edema: bilateral: None - Gastrointestinal General gastrointestinal: Present: normal bowel sounds, soft - Integumentary Integumentary: Present: pale - Musculoskeletal Musculoskeletal: Present: generalized weakness - Psychiatric Psychiatric: Present: A&O x's 3, appropriate affect, intact judgment & insight - Labs CBC & Chem 7: 12/09/16 07:14 12/09/16 07:14 Labs: Abnormal Lab Results - Last 24 Hours (Table) 12/08/16 12/08/16 12/08/16 Range/Units 15:52 17:11 20:02 RBC 3.07 L (3.80-5.40) m/uL Hgb 9.1 L (11.4-16.0) gm/dL Hct 26.7 L (34.0-46.0) % Lymphocytes # 0.3 L (1.0-4.8) k/uL Retic Count (0.5-2.0) % Sodium (137-145) mmol/L Chloride (98-107) mmol/L Carbon Dioxide (22-30) mmol/L Glucose (74-99) mg/dL POC Glucose (mg/dL) 129 H 140 H (75-99) mg/dL Magnesium (1.6-2.3) mg/dL Iron (37-170) ug/dL % Saturation (20-50) % Albumin (3.5-5.0) g/dL 12/09/16 12/09/16 12/09/16 Range/Units 07:14 07:14 07:14 RBC 2.71 L (3.80-5.40) m/uL Hgb 8.3 L (11.4-16.0) gm/dL Hct 24.3 L (34.0-46.0) % Lymphocytes # 0.3 L (1.0-4.8) k/uL Retic Count 4.2 H (0.5-2.0) % Sodium 129 L (137-145) mmol/L Chloride 92 L (98-107) mmol/L Carbon Dioxide 33 H (22-30) mmol/L Glucose 136 H (74-99) mg/dL POC Glucose (mg/dL) (75-99) mg/dL Magnesium 1.4 L (1.6-2.3) mg/dL Iron 11 L (37-170) ug/dL % Saturation 4.1 L (20-50) % Albumin 3.1 L (3.5-5.0) g/dL 12/09/16 12/09/16 Range/Units 07:18 11:40 RBC (3.80-5.40) m/uL Hgb (11.4-16.0) gm/dL Hct (34.0-46.0) % Lymphocytes # (1.0-4.8) k/uL Retic Count (0.5-2.0) % Sodium (137-145) mmol/L Chloride (98-107) mmol/L Carbon Dioxide (22-30) mmol/L Glucose (74-99) mg/dL POC Glucose (mg/dL) 155 H 173 H (75-99) mg/dL Magnesium (1.6-2.3) mg/dL Iron (37-170) ug/dL % Saturation (20-50) % Albumin (3.5-5.0) g/dL Microbiology - Last 24 Hours (Table) 12/08/16 05:46 Blood Culture - Preliminary Blood No Growth after 24 hours Assessment and Plan (1) Anemia Narrative/Plan: Iron deficiency-likely r/t nutritional deficiency, parenteral iron supplementation ordered. No transfusion necessary today Status: Chronic (2) Hyponatremia Status: Acute (3) Squamous cell carcinoma, keratinizing Narrative/Plan: Pt is s/p 2 cycles of pembrolizumab (incorrectly documented as nivolumab previously). Concern is for lack of objective response and pt gradual decline. Dr. Hassan is aware of pt condition currently and has stated that if pt continues to decline then hospice would be appropriate. I have had this discussion with the daughter - NOT the pt - daughter will meet and talk with family OR request a family meeting with the Doctor when she feels they are ready. Cont current management of pt at this time. Status: Chronic Plan: Xanax ordered BID for anxiety Cont carafate as this seemed to help with pt c/o of reflux
[2016-12-09 17:28] LABS: Glucose,Whole Blood 131 mg/dL (75-99)
[2016-12-09] MEDS: ATORVASTATIN 20 MG TAB PEG/G-TUBE SCH (22:14)
[2016-12-09] MEDS: ALPRAZolam 0.25 MG TAB PO SCH (22:14)
[2016-12-09 22:24] LABS: Glucose,Whole Blood 137 mg/dL (75-99)
[2016-12-10] MEDS ORDERED: hydrALAZINE HCL 20 MG/ML 1 ML VIAL IVP PRN (06:08)
[2016-12-10 07:05] LABS: Glucose,Whole Blood 157 mg/dL (75-99)
[2016-12-10 07:20] LABS: Basophils % (A) 0 %; CH 29.2; CHCM 32.9; Eosinophils # (A) 0.2 k/uL (0-0.7); Eosinophils % (A) 2 %; HCT 26.6 % (34.0-46.0); HDW 3.63; HGB 8.8 gm/dL (11.4-16.0); Hypochromasia Slight; Luc # (Auto) 0.16; Luc % (Auto) 2; Lymphocytes # (A) 0.3 k/uL (1.0-4.8); Lymphocytes % (A) 3 %; MCH 29.3 pg (25.0-35.0); MCHC 32.9 g/dL (31.0-37.0); MCV 88.9 fL (80.0-100.0); Mean Platelet Volume 6.5; Monocytes # (A) 0.6 k/uL (0-1.0); Monocytes % (A) 6 %; Neutrophils # (A) 8.4 k/uL (1.3-7.7); Neutrophils % (A) 87 %; Poikilocytosis Slight; RBC 2.99 m/uL (3.80-5.40); RDW 15.6 % (11.5-15.5); WBC 9.6 k/uL (3.8-10.6); WBC (Perox) 10.41
[2016-12-10 07:42] LABS: ALT 23 U/L (9-52); AST 24 U/L (14-36); Alkaline Phosphatase 66 U/L (38-126); Anion Gap 6 mmol/L; Blood Urea Nitrogen 12 mg/dL (7-17); Carbon Dioxide 30 mmol/L (22-30); Chloride 89 mmol/L (98-107); Glucose 136 mg/dL (74-99); Magnesium 1.3 mg/dL (1.6-2.3); Non-African American GFR(MDRD) >60 (>60 ml/min/1.73 sqM); Potassium 3.9 mmol/L (3.5-5.1); Sodium 125 mmol/L (137-145); Total Bilirubin 0.3 mg/dL (0.2-1.3); Total Protein 6.3 g/dL (6.3-8.2)
[2016-12-10] MEDS: CARVEDILOL 3.125 MG TAB PEG/G-TUBE SCH ×2 (08:07→16:49)
[2016-12-10] MEDS: INSULIN LISPRO (humaLOG) 300 UNIT/3 ML VIAL SQ SCH ×4 (08:07→21:58)
[2016-12-10] MEDS: SUCRALFATE 1 GM TAB PO SCH ×4 (08:08→21:18)
[2016-12-10] MEDS: ASPIRIN 325 MG TAB PEG/G-TUBE SCH (08:08)
[2016-12-10] MEDS: POTASSIUM CHLORIDE ORAL LIQUID 40 MEQ/30 ML CUP PEG/G-TUBE SCH ×2 (08:09→21:17)
[2016-12-10] MEDS: MAGNESIUM OXIDE 400 MG TAB PEG/G-TUBE SCH ×2 (08:09→21:18)
[2016-12-10] MEDS: FERROUS SULFATE ORAL ELIXIR 300 MG/5 ML CUP PEG/G-TUBE SCH ×2 (08:09→21:17)
[2016-12-10] MEDS: OXYBUTYNIN CHLORIDE 5 MG TAB PEG/G-TUBE SCH ×2 (08:09→21:18)
[2016-12-10] MEDS: LEVOTHYROXINE 75 MCG TAB PEG/G-TUBE SCH (08:09)
[2016-12-10] MEDS: ALPRAZolam 0.25 MG TAB PO SCH ×2 (08:18→21:17)
[2016-12-10] MEDS: SODIUM FERRIC GLUCONAT-SUCROSE 125 MG in SODIUM CHLORIDE 0.9% 100 ML IVPB SCH (08:18)
[2016-12-10] MEDS ORDERED: cloNIDine HCL 0.2 MG TAB PO STA (09:11)
--- NOTE | 2016-12-10 09:44 | ECHOF ---
Referral Reason:lv function MEASUREMENTS -------- HEIGHT: 152.4 cm WEIGHT: 54.0 kg BP: 167/77 RVIDd: 2.2 cm (< 3.3) IVSd: 1.0 cm (0.6 - 1.1) LVIDd: 4.2 cm (3.9 - 5.3) LVPWd: 1.1 cm (0.6 - 1.1) IVSs: 1.4 cm LVIDs: 3.1 cm LVPWs: 1.3 cm LA Diam: 2.5 cm (2.7 - 3.8) IVSd: 3.6 cm (0.6 - 1.1) Ao Diam: 3.4 cm (2.0 - 3.7) AV Cusp: 1.2 cm (1.5 - 2.6) LA Diam: 3.8 cm (2.7 - 3.8) MV EXCURSION: 16.312 mm (> 18.000) MV EF SLOPE: 131 mm/s (70 - 150) EPSS: 0.2 cm MV E Dae: 0.83 m/s MV DecT: 188 ms MV A Dae: 0.85 m/s MV E/A Ratio: 0.97 RAP: 5.00 mmHg RVSP: 31.43 mmHg FINDINGS -------- Sinus rhythm. This was a technically adequate study. There is borderline concentric left ventricular hypertrophy. Overall left ventricular systolic function is low-normal with, an EF between 50 - 55 %. The right ventricle is normal in size. The left atrial size is normal. The right atrial size is normal. There is mild aortic valve sclerosis. There is no evidence of aortic regurgitation. Mild mitral annular calcification present. Mild mitral regurgitation is present. Mild tricuspid regurgitation present. There is no evidence of pulmonary hypertension. The right ventricular systolic pressure, as measured by Doppler, is 31.43mmHg. Trace/mild (physiologic) pulmonic regurgitation. The aortic root size is normal. There is no pericardial effusion. CONCLUSIONS -------- 1. There is borderline concentric left ventricular hypertrophy. 2. The aortic root size is normal. 3. There is no pericardial effusion. 4. Overall left ventricular systolic function is low-normal with, an EF between 50 - 55 %. 5. There is mild aortic valve sclerosis. 6. Mild mitral annular calcification present. 7. Mild mitral regurgitation is present. 8. Mild tricuspid regurgitation present. 9. There is no evidence of pulmonary hypertension. 10. The right ventricular systolic pressure, as measured by Doppler, is 31.43mmHg. 11. Trace/mild (physiologic) pulmonic regurgitation. [employer]: Radha Hilton RDCS
[2016-12-10] MEDS: HYDROcodone/APAP 10-325MG 1 EACH TAB PEG/G-TUBE PRN ×2 (10:30→19:23)
[2016-12-10 11:52] LABS: Glucose,Whole Blood 166 mg/dL (75-99)
[2016-12-10] MEDS: CHOLECALCIFEROL 1,000 UNIT TAB PEG/G-TUBE SCH (12:25)
--- NOTE | 2016-12-10 12:30 | P.PN ---
Subjective Principal diagnosis: CAD this is a pleasant 76-year-old female patient who sees Dr. Crocker as an outpatient with a known history of CAD and prior stenting with unknown details at this point, hypertension, dyslipidemia who was diagnosed recently with oral cancer and status post radiation. We get involved in the care of the patient because she was experiencing shortness of breath yesterday. She was seen and evaluated by Dr. Barrientos who ordered an echocardiogram which showed normal LV function. On physical examination she has bilateral rhonchi. The patient was coughing and she was producing sputum, as well. Then. She denies having any chest pain or chest discomfort at this point. Objective - Vital Signs Vital signs: Vital Signs Temp 97.6 F 12/10/16 07:00 Pulse 72 12/10/16 07:00 Resp 20 12/10/16 07:00 BP 199/88 12/10/16 09:05 Pulse Ox 100 12/10/16 07:00 Intake & Output 12/09/16 12/10/16 12/10/16 18:59 06:59 18:59 Intake Total 220 495 Balance 220 495 Weight 55 kg Intake: Tube Feeding 220 495 Other: Voiding Method Toilet Toilet # Voids 1 - Constitutional General appearance: Present: no acute distress - Respiratory Respiratory: bilateral: rhonchi - Cardiovascular Rhythm: regular - Labs CBC & Chem 7: 12/10/16 06:47 12/10/16 06:47 Labs: Abnormal Lab Results - Last 24 Hours (Table) 12/09/16 12/09/16 12/10/16 Range/Units 17:27 22:18 06:47 RBC 2.99 L (3.80-5.40) m/uL Hgb 8.8 L (11.4-16.0) gm/dL Hct 26.6 L (34.0-46.0) % RDW 15.6 H (11.5-15.5) % Neutrophils # 8.4 H (1.3-7.7) k/uL Lymphocytes # 0.3 L (1.0-4.8) k/uL Sodium (137-145) mmol/L Chloride (98-107) mmol/L Creatinine (0.52-1.04) mg/dL Glucose (74-99) mg/dL POC Glucose (mg/dL) 131 H 137 H (75-99) mg/dL Magnesium (1.6-2.3) mg/dL Albumin (3.5-5.0) g/dL 12/10/16 12/10/16 12/10/16 Range/Units 06:47 07:02 11:49 RBC (3.80-5.40) m/uL Hgb (11.4-16.0) gm/dL Hct (34.0-46.0) % RDW (11.5-15.5) % Neutrophils # (1.3-7.7) k/uL Lymphocytes # (1.0-4.8) k/uL Sodium 125 L (137-145) mmol/L Chloride 89 L (98-107) mmol/L Creatinine 0.50 L (0.52-1.04) mg/dL Glucose 136 H (74-99) mg/dL POC Glucose (mg/dL) 157 H 166 H (75-99) mg/dL Magnesium 1.3 L (1.6-2.3) mg/dL Albumin 3.0 L (3.5-5.0) g/dL Microbiology - Last 24 Hours (Table) 12/08/16 05:46 Blood Culture - Preliminary Blood No Growth after 48 hours Assessment and Plan Plan: assessment CAD and status post a stenting Cough which seems to be productive Oral cancer and status post radiation Multiple comorbid conditions Plan E echocardiogram was performed and showed normal LV function She was started on Norvasc for uncontrolled hypertension
--- NOTE | 2016-12-10 12:53 | P.PN ---
Subjective Patient is been seen by me today for the first time on weekend coverage. Patient is complaining of persistent cough that is productive of large amount of yellowish/greenish sputum. There is mild end-expiratory wheezing but diffuse crackles all over the chest. Chest x-ray done on admission showed no acute findings. Objective - Vital Signs Vital signs: Vital Signs Temp 97.6 F 12/10/16 07:00 Pulse 72 12/10/16 07:00 Resp 20 12/10/16 07:00 BP 199/88 12/10/16 09:05 Pulse Ox 100 12/10/16 07:00 Intake & Output 12/09/16 12/10/16 12/10/16 18:59 06:59 18:59 Intake Total 220 495 Balance 220 495 Weight 55 kg Intake: Tube Feeding 220 495 Other: Voiding Method Toilet Toilet # Voids 1 - Exam General: The patient is awake and alert, in no distress. She had the facial deformity on the right side of the face around her mouth secondary to history of cancer Eye: there is normal conjunctiva bilaterally. Neck: The neck is supple, there is no JVD. Cardiovascular: Normal S1-S2, no S3-S4, no murmurs. Respiratory: Lungs with rhonchi and rales all over the chest Gastrointestinal: Abdomen is soft, nontender Musculoskeletal: There is no pedal edema. Skin: Skin is warm and dry - Labs CBC & Chem 7: 12/10/16 06:47 12/10/16 06:47 Labs: Abnormal Lab Results - Last 24 Hours (Table) 12/09/16 12/09/16 12/10/16 Range/Units 17:27 22:18 06:47 RBC 2.99 L (3.80-5.40) m/uL Hgb 8.8 L (11.4-16.0) gm/dL Hct 26.6 L (34.0-46.0) % RDW 15.6 H (11.5-15.5) % Neutrophils # 8.4 H (1.3-7.7) k/uL Lymphocytes # 0.3 L (1.0-4.8) k/uL Sodium (137-145) mmol/L Chloride (98-107) mmol/L Creatinine (0.52-1.04) mg/dL Glucose (74-99) mg/dL POC Glucose (mg/dL) 131 H 137 H (75-99) mg/dL Magnesium (1.6-2.3) mg/dL Albumin (3.5-5.0) g/dL 12/10/16 12/10/16 12/10/16 Range/Units 06:47 07:02 11:49 RBC (3.80-5.40) m/uL Hgb (11.4-16.0) gm/dL Hct (34.0-46.0) % RDW (11.5-15.5) % Neutrophils # (1.3-7.7) k/uL Lymphocytes # (1.0-4.8) k/uL Sodium 125 L (137-145) mmol/L Chloride 89 L (98-107) mmol/L Creatinine 0.50 L (0.52-1.04) mg/dL Glucose 136 H (74-99) mg/dL POC Glucose (mg/dL) 157 H 166 H (75-99) mg/dL Magnesium 1.3 L (1.6-2.3) mg/dL Albumin 3.0 L (3.5-5.0) g/dL Microbiology - Last 24 Hours (Table) 12/08/16 05:46 Blood Culture - Preliminary Blood No Growth after 48 hours Assessment and Plan Plan: 1. Purulent tracheobronchitis: I will start the patient on antibiotic intravenously and obtain a repeat chest x-ray to rule out pneumonia. Sputum culture ordered. Albuterol every 6 hours around the clock. Continue liquid Robitussin via PEG tube. 2. Hyponatremia: Continue to hold Zestoretic. Gentle IV fluid hydration. 3. 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 Oncology consulted. Chemo treatment currently placed on hold. 4. Hypomagnesemia: Replace by protocol. 5. Anemia with known iron deficiency anemia and possibly chemo-induced anemia. Continue iron supplement. 7. Diabetes mellitus type 2: Metformin on hold. Add sliding scale coverage with Accu-Cheks every before meals and at bedtime 8. Essential hypertension: Blood pressure stable continue with Coreg 9. Hyperlipidemia continue Lipitor 10. History of coronary artery disease with previous cardiac stents 11. Hypothyroidism continue Synthroid DVT prophylaxis SCDs Continue tube feedings for nutrition support
[2016-12-10] MEDS: amLODIPine 5 MG TAB PO SCH (13:00)
[2016-12-10] MEDS: SODIUM CHLORIDE 0.9% 1,000 ML IV SCH ×2 (13:38→16:48)
--- NOTE | 2016-12-10 13:40 | XR ---
EXAMINATION TYPE: XR chest 2V DATE OF EXAM: 12/10/2016 1:27 PM COMPARISON: Chest x-ray from 2 days ago. HISTORY: Productive cough per order. TECHNIQUE: Frontal and lateral views of the chest are obtained. FINDINGS: There is stable right internal jugular Mediport catheter. There are stable left basilar andrew ear scarring or atelectasis. There is no suspicious new focal air space opacity, pleural effusion, or pneumothorax seen. The cardiac silhouette size is upper limits of normal currently. Multilevel spur ring in the spine is present. Osseous structures are demineralized. IMPRESSION: No new suspicious acute infiltrate is present.
[2016-12-10] MEDS: ALBUTEROL NEBULIZED 2.5 MG/3 ML INHALATION SCH ×2 (16:16→20:29)
[2016-12-10] MEDS: AZITHROMYCIN 500 MG in SODIUM CHLORIDE 0.9% 250 ML IVPB SCH (16:49)
[2016-12-10 17:37] LABS: Glucose,Whole Blood 110 mg/dL (75-99)
[2016-12-10 21:03] LABS: Glucose,Whole Blood 112 mg/dL (75-99)
[2016-12-10] MEDS: ATORVASTATIN 20 MG TAB PEG/G-TUBE SCH (21:18)
[2016-12-10] MEDS: ONDANSETRON 4 MG/2 ML VIAL IVP PRN (21:21)
[2016-12-11] MEDS: HYDROcodone/APAP 10-325MG 1 EACH TAB PEG/G-TUBE PRN ×4 (00:54→20:25)
[2016-12-11 06:18] LABS: Glucose,Whole Blood 172 mg/dL (75-99)
[2016-12-11 07:56] LABS: Basophils % (A) 0 %; CH 29.2; CHCM 33.2; Eosinophils # (A) 0.1 k/uL (0-0.7); Eosinophils % (A) 1 %; HCT 27.2 % (34.0-46.0); HDW 3.66; HGB 9.1 gm/dL (11.4-16.0); Luc # (Auto) 0.16; Luc % (Auto) 1; Lymphocytes # (A) 0.4 k/uL (1.0-4.8); Lymphocytes % (A) 3 %; MCH 29.5 pg (25.0-35.0); MCHC 33.4 g/dL (31.0-37.0); MCV 88.2 fL (80.0-100.0); Mean Platelet Volume 6.9; Monocytes # (A) 0.7 k/uL (0-1.0); Monocytes % (A) 5 %; Neutrophils # (A) 12.1 k/uL (1.3-7.7); Neutrophils % (A) 90 %; Poikilocytosis Slight; RBC 3.08 m/uL (3.80-5.40); RDW 15.7 % (11.5-15.5); WBC 13.4 k/uL (3.8-10.6); WBC (Perox) 14.06
[2016-12-11] MEDS: INSULIN LISPRO (humaLOG) 300 UNIT/3 ML VIAL SQ SCH ×4 (08:04→22:13)
[2016-12-11] MEDS: SUCRALFATE 1 GM TAB PO SCH ×4 (08:04→22:13)
[2016-12-11] MEDS: CARVEDILOL 3.125 MG TAB PEG/G-TUBE SCH (08:04)
[2016-12-11] MEDS: LEVOTHYROXINE 75 MCG TAB PEG/G-TUBE SCH (08:05)
[2016-12-11] MEDS: amLODIPine 5 MG TAB PO SCH (08:05)
[2016-12-11] MEDS: ALPRAZolam 0.25 MG TAB PO SCH ×2 (08:05→22:11)
[2016-12-11] MEDS: ASPIRIN 325 MG TAB PEG/G-TUBE SCH (08:05)
[2016-12-11] MEDS: FERROUS SULFATE ORAL ELIXIR 300 MG/5 ML CUP PEG/G-TUBE SCH ×2 (08:05→22:12)
[2016-12-11] MEDS: OXYBUTYNIN CHLORIDE 5 MG TAB PEG/G-TUBE SCH ×2 (08:06→22:12)
[2016-12-11] MEDS: POTASSIUM CHLORIDE ORAL LIQUID 40 MEQ/30 ML CUP PEG/G-TUBE SCH ×2 (08:06→22:12)
[2016-12-11] MEDS: MAGNESIUM OXIDE 400 MG TAB PEG/G-TUBE SCH ×2 (08:06→22:13)
[2016-12-11 08:11] LABS: ALT 22 U/L (9-52); AST 31 U/L (14-36); Alkaline Phosphatase 56 U/L (38-126); Anion Gap 8 mmol/L; Blood Urea Nitrogen 15 mg/dL (7-17); Carbon Dioxide 29 mmol/L (22-30); Chloride 88 mmol/L (98-107); Glucose 135 mg/dL (74-99); Magnesium 1.2 mg/dL (1.6-2.3); Non-African American GFR(MDRD) >60 (>60 ml/min/1.73 sqM); Sodium 125 mmol/L (137-145); Total Bilirubin 0.6 mg/dL (0.2-1.3); Total Protein 6.6 g/dL (6.3-8.2)
[2016-12-11] MEDS: SODIUM FERRIC GLUCONAT-SUCROSE 125 MG in SODIUM CHLORIDE 0.9% 100 ML IVPB SCH (08:12)
[2016-12-11] MEDS: guaiFENesin SYRUP 100MG/5ML 200 MG/10 ML CUP PEG/G-TUBE SCH (08:21)
[2016-12-11 08:26] LABS: Potassium 4.3 mmol/L (3.5-5.1)
--- NOTE | 2016-12-11 08:55 | P.PN ---
Progress Note - Text This is a pleasant 76-year-old female patient who sees Dr. Crocker as an outpatient with a known history of CAD and prior stenting with unknown details at this point, hypertension, dyslipidemia who was diagnosed recently with oral/lip cancer and status post radiation. We get involved in the care of the patient because she was experiencing shortness of breath yesterday. She was seen and evaluated by Dr. Barrientos who ordered an echocardiogram which showed normal LV function. the blood pressure continues to be uncontrolled. I am going to increase the dose of Coreg to 6.25 mg by mouth twice a day.
[2016-12-11] MEDS ORDERED: CARVEDILOL 3.125 MG TAB PEG/G-TUBE ONE (09:15)
[2016-12-11] MEDS: SCOPOLAMINE 1.5MG/72HR PATCH TRANSDERM SCH (09:46)
[2016-12-11] MEDS: ALBUTEROL NEBULIZED 2.5 MG/3 ML INHALATION SCH ×4 (10:42→20:21)
[2016-12-11 11:37] LABS: Glucose,Whole Blood 155 mg/dL (75-99)
[2016-12-11] MEDS: CHOLECALCIFEROL 1,000 UNIT TAB PEG/G-TUBE SCH (12:06)
--- NOTE | 2016-12-11 13:53 | P.PN ---
Subjective Patient is doing better today. Her cough has improved. No events overnight. Objective - Vital Signs Vital signs: Vital Signs Temp 99.8 F H 12/11/16 07:45 Pulse 80 12/11/16 11:24 Resp 20 12/11/16 07:00 BP 143/75 12/11/16 07:00 Pulse Ox 95 12/11/16 07:00 Intake & Output 12/10/16 12/11/16 12/11/16 18:59 06:59 18:59 Intake Total 440 302 Balance 440 302 Weight 55 kg 55 kg 56 kg Intake: Tube Feeding 440 302 Other: Voiding Method Toilet Toilet # Voids 1 - Exam General: The patient is awake and alert, in no distress. She had the facial deformity on the right side of the face around her mouth secondary to history of cancer Eye: there is normal conjunctiva bilaterally. Neck: The neck is supple, there is no JVD. Cardiovascular: Normal S1-S2, no S3-S4, no murmurs. Respiratory: Lungs with rhonchi and rales all over the chest Gastrointestinal: Abdomen is soft, nontender Musculoskeletal: There is no pedal edema. Skin: Skin is warm and dry - Labs CBC & Chem 7: 12/11/16 07:07 12/11/16 07:07 Labs: Abnormal Lab Results - Last 24 Hours (Table) 12/10/16 12/10/16 12/11/16 Range/Units 17:35 20:57 06:13 WBC (3.8-10.6) k/uL RBC (3.80-5.40) m/uL Hgb (11.4-16.0) gm/dL Hct (34.0-46.0) % RDW (11.5-15.5) % Neutrophils # (1.3-7.7) k/uL Lymphocytes # (1.0-4.8) k/uL Sodium (137-145) mmol/L Chloride (98-107) mmol/L Creatinine (0.52-1.04) mg/dL Glucose (74-99) mg/dL POC Glucose (mg/dL) 110 H 112 H 172 H (75-99) mg/dL Magnesium (1.6-2.3) mg/dL Albumin (3.5-5.0) g/dL 12/11/16 12/11/1617 Range/Units 07:07 07:07 11:28 WBC 13.4 H (3.8-10.6) k/uL RBC 3.08 L (3.80-5.40) m/uL Hgb 9.1 L (11.4-16.0) gm/dL Hct 27.2 L (34.0-46.0) % RDW 15.7 H (11.5-15.5) % Neutrophils # 12.1 H (1.3-7.7) k/uL Lymphocytes # 0.4 L (1.0-4.8) k/uL Sodium 125 L (137-145) mmol/L Chloride 88 L (98-107) mmol/L Creatinine 0.48 L (0.52-1.04) mg/dL Glucose 135 H (74-99) mg/dL POC Glucose (mg/dL) 155 H (75-99) mg/dL Magnesium 1.2 L (1.6-2.3) mg/dL Albumin 3.1 L (3.5-5.0) g/dL Microbiology - Last 24 Hours (Table) 12/10/16 16:20 Gram Stain - Preliminary Sputum Sputum Culture - Preliminary Pseudomonas spec 12/08/16 05:46 Blood Culture - Preliminary Blood No Growth after 72 hours Assessment and Plan Plan: 1. Purulent tracheobronchitis: Continue antibiotic with IV ceftriaxone and azithromycin. Repeat chest x-ray showed no evidence of infiltrate.. Sputum culture pending. Albuterol every 6 hours around the clock. Continue liquid Robitussin via PEG tube. 2. Hyponatremia: Continue to hold Zestoretic. Gentle IV fluid hydration. 3. 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 Oncology consulted. Chemo treatment currently placed on hold. 4. Hypomagnesemia: Replace by protocol. 5. Anemia with known iron deficiency anemia and possibly chemo-induced anemia. Continue iron supplement. 7. Diabetes mellitus type 2: Metformin on hold. Add sliding scale coverage with Accu-Cheks every before meals and at bedtime 8. Essential hypertension: Blood pressure stable continue with Coreg 9. Hyperlipidemia continue Lipitor 10. History of coronary artery disease with previous cardiac stents 11. Hypothyroidism continue Synthroid DVT prophylaxis SCDs Continue tube feedings for nutrition support
[2016-12-11] MEDS: AZITHROMYCIN 500 MG in SODIUM CHLORIDE 0.9% 250 ML IVPB SCH (15:24)
[2016-12-11] MEDS: SODIUM CHLORIDE 0.9% 1,000 ML IV SCH (15:26)
[2016-12-11 17:13] LABS: Glucose,Whole Blood 128 mg/dL (75-99)
[2016-12-11] MEDS: CARVEDILOL 6.25 MG TAB PEG/G-TUBE SCH (18:07)
[2016-12-11 20:16] LABS: Glucose,Whole Blood 110 mg/dL (75-99)
[2016-12-11] MEDS: ATORVASTATIN 20 MG TAB PEG/G-TUBE SCH (22:12)
[2016-12-12] MEDS: HYDROcodone/APAP 10-325MG 1 EACH TAB PEG/G-TUBE PRN ×4 (04:17→21:48)
[2016-12-12] MEDS: ALBUTEROL NEBULIZED 2.5 MG/3 ML INHALATION SCH ×4 (07:20→20:41)
[2016-12-12 07:29] LABS: Glucose,Whole Blood 170 mg/dL (75-99)
[2016-12-12 08:46] LABS: Anisocytosis Slight; Basophils % (A) 0 %; CH 28.7; CHCM 32.1; Eosinophils # (A) 0.3 k/uL (0-0.7); Eosinophils % (A) 2 %; HCT 25.6 % (34.0-46.0); HDW 3.47; HGB 8.2 gm/dL (11.4-16.0); Hypochromasia Slight; Luc # (Auto) 0.13; Luc % (Auto) 1; Lymphocytes # (A) 0.4 k/uL (1.0-4.8); Lymphocytes % (A) 4 %; MCH 28.7 pg (25.0-35.0); MCHC 32.1 g/dL (31.0-37.0); MCV 89.4 fL (80.0-100.0); Mean Platelet Volume 6.5; Monocytes # (A) 0.5 k/uL (0-1.0); Monocytes % (A) 4 %; Neutrophils # (A) 9.8 k/uL (1.3-7.7); Neutrophils % (A) 89 %; Poikilocytosis Slight; RBC 2.86 m/uL (3.80-5.40); RDW 16.2 % (11.5-15.5); WBC (Perox) 11.11
[2016-12-12 09:01] LABS: ALT 18 U/L (9-52); AST 20 U/L (14-36); Alkaline Phosphatase 62 U/L (38-126); Anion Gap 6 mmol/L; Blood Urea Nitrogen 13 mg/dL (7-17); Carbon Dioxide 32 mmol/L (22-30); Chloride 87 mmol/L (98-107); Glucose 153 mg/dL (74-99); Non-African American GFR(MDRD) >60 (>60 ml/min/1.73 sqM); Potassium 3.9 mmol/L (3.5-5.1); Sodium 125 mmol/L (137-145); Total Bilirubin 0.4 mg/dL (0.2-1.3); Total Protein 6.1 g/dL (6.3-8.2)
[2016-12-12] MEDS: ALPRAZolam 0.25 MG TAB PO SCH ×2 (09:14→21:43)
[2016-12-12] MEDS: CARVEDILOL 6.25 MG TAB PEG/G-TUBE SCH ×2 (09:14→16:28)
[2016-12-12] MEDS: INSULIN LISPRO (humaLOG) 300 UNIT/3 ML VIAL SQ SCH ×4 (09:15→22:05)
[2016-12-12] MEDS: amLODIPine 5 MG TAB PO SCH (09:16)
[2016-12-12] MEDS: FERROUS SULFATE ORAL ELIXIR 300 MG/5 ML CUP PEG/G-TUBE SCH ×2 (09:16→21:44)
[2016-12-12] MEDS: LEVOTHYROXINE 75 MCG TAB PEG/G-TUBE SCH (09:16)
[2016-12-12] MEDS: SUCRALFATE 1 GM TAB PO SCH ×4 (09:16→21:44)
[2016-12-12] MEDS: guaiFENesin SYRUP 100MG/5ML 200 MG/10 ML CUP PEG/G-TUBE SCH (09:16)
[2016-12-12] MEDS: ASPIRIN 325 MG TAB PEG/G-TUBE SCH (09:16)
[2016-12-12] MEDS: MAGNESIUM OXIDE 400 MG TAB PEG/G-TUBE SCH ×2 (09:17→21:44)
[2016-12-12] MEDS: POTASSIUM CHLORIDE ORAL LIQUID 40 MEQ/30 ML CUP PEG/G-TUBE SCH ×2 (09:17→21:44)
[2016-12-12] MEDS: OXYBUTYNIN CHLORIDE 5 MG TAB PEG/G-TUBE SCH ×2 (09:17→21:44)
--- NOTE | 2016-12-12 11:21 | P.PN ---
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 She has received both chemo and radiation treatments. Currently chemotherapy on hold. Oncology following. She presented to the emergency room with complaints of shortness of breath. Patient now saying she also had some heart palpitations. She reports another episode of shortness of breath around 2 :00 this morning. Cardiology will be consulted and she'll be placed on telemetry for monitoring of any arrhythmias. Patient denies any chest pain. Denies any nausea or vomiting. Denies any bowel movement changes or urinary symptoms. She is tolerating PEG tube feedings. 12/12/2016 patient lying in bed comfortably. No distress. She does admit to having some shortness of breath with walking to the bathroom earlier today. She reports that her cough has shown some improvement. Secretions are becoming thinner. She has any chest pain. Denies any heart palpitations. Denies any nausea vomiting. She is having small bowel movements. Denies difficulty urinating. Patient did have low-grade temp of 100.3 last night. White count showing improvement down to 11. Sputum culture growing Pseudomonas Objective - Vital Signs Vital signs: Vital Signs Temp 98.3 F 12/12/16 07:00 Pulse 88 12/12/16 07:32 Resp 18 12/12/16 07:00 BP 148/79 12/12/16 07:00 Pulse Ox 96 12/12/16 07:25 Intake & Output 12/11/16 12/12/16 12/12/16 18:59 06:59 18:59 Intake Total 302 660 220 Balance 302 660 220 Weight 56 kg 56 kg Intake: Tube Feeding 302 660 220 Other: Voiding Method Toilet - Exam Head normocephalic. Facial deformity on the right side of her face due to her cancer Neck supple Lungs clear to auscultation bilaterally no wheezing or crackles Heart regular rate and rhythm S1-S2, no rub or gallop Abdomen is soft nontender nondistended positive bowel sounds no hepatosplenomegaly Extremities no edema Neuro alert and orientated to 3 - Labs CBC & Chem 7: 12/12/16 08:21 12/12/16 08:21 Labs: Abnormal Lab Results - Last 24 Hours (Table) 12/09/16 12/11/16 12/11/16 Range/Units 07:14 11:28 16:58 WBC (3.8-10.6) k/uL RBC (3.80-5.40) m/uL Hgb (11.4-16.0) gm/dL Hct (34.0-46.0) % RDW (11.5-15.5) % Neutrophils # (1.3-7.7) k/uL Lymphocytes # (1.0-4.8) k/uL Sodium (137-145) mmol/L Chloride (98-107) mmol/L Carbon Dioxide (22-30) mmol/L Creatinine (0.52-1.04) mg/dL Glucose (74-99) mg/dL POC Glucose (mg/dL) 155 H 128 H (75-99) mg/dL Magnesium (1.6-2.3) mg/dL Total Protein (6.3-8.2) g/dL Albumin (3.5-5.0) g/dL RBC Folate 1,448 H (280 - 791) ng/mL 12/11/16 12/12/16 12/12/16 Range/Units 20:14 07:27 08:21 WBC 11.0 H (3.8-10.6) k/uL RBC 2.86 L (3.80-5.40) m/uL Hgb 8.2 L (11.4-16.0) gm/dL Hct 25.6 L (34.0-46.0) % RDW 16.2 H (11.5-15.5) % Neutrophils # 9.8 H (1.3-7.7) k/uL Lymphocytes # 0.4 L (1.0-4.8) k/uL Sodium (137-145) mmol/L Chloride (98-107) mmol/L Carbon Dioxide (22-30) mmol/L Creatinine (0.52-1.04) mg/dL Glucose (74-99) mg/dL POC Glucose (mg/dL) 110 H 170 H (75-99) mg/dL Magnesium (1.6-2.3) mg/dL Total Protein (6.3-8.2) g/dL Albumin (3.5-5.0) g/dL RBC Folate (280 - 791) ng/mL 12/12/16 Range/Units 08:21 WBC (3.8-10.6) k/uL RBC (3.80-5.40) m/uL Hgb (11.4-16.0) gm/dL Hct (34.0-46.0) % RDW (11.5-15.5) % Neutrophils # (1.3-7.7) k/uL Lymphocytes # (1.0-4.8) k/uL Sodium 125 L (137-145) mmol/L Chloride 87 L (98-107) mmol/L Carbon Dioxide 32 H (22-30) mmol/L Creatinine 0.47 L (0.52-1.04) mg/dL Glucose 153 H (74-99) mg/dL POC Glucose (mg/dL) (75-99) mg/dL Magnesium 1.0 L* (1.6-2.3) mg/dL Total Protein 6.1 L (6.3-8.2) g/dL Albumin 2.8 L (3.5-5.0) g/dL RBC Folate (280 - 791) ng/mL Microbiology - Last 24 Hours (Table) 12/08/16 05:46 Blood Culture - Preliminary Blood No Growth after 96 hours 12/10/16 16:20 Gram Stain - Preliminary Sputum Sputum Culture - Preliminary Pseudomonas spec Assessment and Plan Plan: 1. Shortness of breath: Possibly related to tracheobronchitis. Sputum culture growing Pseudomonas. Change antibiotics to IV Zosyn. Chest x-ray negative. D- dimer negative. No cardiac arrhythmias on telemetry 2. Hyponatremia: Sodium 121 on admission. Zestoretic on hold. Also could be a side effect from her chemo medication. Patient receiving IV fluids. Sodium 125. Continue to monitor 3. 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 Oncology consulted. Chemo treatment currently placed on hold. will await further away oncology recommendations 4. Hypomagnesemia: Magnesium 1.0. Patient's magnesium is continuously low. She is receiving supplement. Also will see if dietitian can adjust tube feedings 5. Anemia with known iron deficiency anemia and possibly chemo-induced anemia. Continue iron supplement. Continue to monitor hemoglobin. Hemoglobin 8.2. Patient did receive iron supplement 6. Hypochloremia: Continue monitor chloride level. Zestoretic on hold. Showing improvement with fluids 7. Diabetes mellitus type 2: Metformin on hold. Add sliding scale coverage with Accu-Cheks every before meals and at bedtime 8. Essential hypertension: Blood pressures are showing improvement with the addition of Norvasc and Coreg was increased by cardiology 9. Hyperlipidemia continue Lipitor 10. History of coronary artery disease with previous cardiac stents 11. Hypothyroidism continue Synthroid DVT prophylaxis SCDs Continue tube feedings for nutrition support Continue physical therapy I performed an examination of the patient and discussed their management with the physician Java Developer Analyst. I have reviewed the Physician Java Developer Analyst's notes and agree with the documented findings and plan of care
[2016-12-12 11:46] LABS: Glucose,Whole Blood 142 mg/dL (75-99)
--- NOTE | 2016-12-12 13:37 | CDI ---
In responding to this query, please exercise your independent professional judgment. The [facility] Coding Staff and Clinical Documentation Specialists appreciate your assistance in clarifying documentation, maintaining compliance with coding guidelines, accurately documenting patients condition and capturing severity of illness. The fact that a question is asked does not imply that any particular answer is desired or expected. Communication forms are a method of clarifying documentation and are not made part of the Legal Health Record. Thank you in advance for your clarification. Last Revision, June 2015 Pratik Nobles [address] [facility] [place] [address] Documentation Clarification Form Date: 12/12/2016 1:17:00 PM From: Akosua Keenan RN, CCDS Admit Date: 12/08/2016 5:34:00 AM Patient Name: Delia Mathias Visit Number: [id number] Discharge Date: Dr. Meseret Duran Progress note on 12/10/16 has a diagnosis of purulent tracheobronchitis. Patient history/risk factors Diabetes mellitus type 2, Hypertension, Lip cancer , Anemia, iron deficiency, Coronary artery disease. Clinical Indicators: Complains of persistent cough that is productive of large amount of yellowish/greenish sputum. Patient has mild end-expiratory wheezing with diffuse crackles all over the chest. Lab findings: HGB 8.8, HCT 26.6, NA+ 125 Chest x-ray: No acute findings Vital Signs: 198/88 72 20 97.6 100 % RA Other Clinical Indicators: Sputum culture: Pseudomonas Treatment: Albuterol Q 6 hrs Robitussin via PEG tube Zosyn IV In your professional opinion, can you please clarify the acuity of the tracheobronchitis? (Was it present on admission?) Acute Acute on chronic Other Unable to determine Please clarify the type of bronchitis Allergic Aspiration Asthmatic Chronic obstructive bronchitis Obstructive bronchitis Other (specify Unable to determine Please document in your progress notes and discharge summary in order to capture severity of illness and risk of mortality. Include clinical findings that support your diagnosis. FYI: Press F11 to launch patient chart. Place X here if this finding has no clinical significance, is not applicable or if you are not able to provide any additional documentation. Acute bacterial bronchitis MTDD
[2016-12-12 15:04] VITALS: BMI 23.3
[2016-12-12] MEDS: CHOLECALCIFEROL 1,000 UNIT TAB PEG/G-TUBE SCH (15:06)
[2016-12-12] MEDS: SODIUM CHLORIDE 0.9% 1,000 ML IV SCH (15:08)
[2016-12-12] MEDS: MAGNESIUM SULFATE-D5W PMX 1 GM in DEXTROSE/WATER 1 100ML.BAG IVPB SCH ×2 (15:24→16:28)
[2016-12-12 16:57] LABS: Glucose,Whole Blood 168 mg/dL (75-99)
[2016-12-12] MEDS: ONDANSETRON 4 MG/2 ML VIAL IVP PRN (17:29)
[2016-12-12] MEDS: PIPERACILLIN-TAZOBACTAM 3.375 GM in DEXTROSE/WATER 1 50ML.BAG IVPB SCH (19:00)
[2016-12-12] MEDS: ATORVASTATIN 20 MG TAB PEG/G-TUBE SCH (21:44)
[2016-12-13] MEDS: PIPERACILLIN-TAZOBACTAM 3.375 GM in DEXTROSE/WATER 1 50ML.BAG IVPB SCH ×3 (00:27→17:43)
[2016-12-13] MEDS: INSULIN LISPRO (humaLOG) 300 UNIT/3 ML VIAL SQ SCH ×4 (00:28→17:46)
[2016-12-13 00:29] LABS: Glucose,Whole Blood 153 mg/dL (75-99)
[2016-12-13 06:22] LABS: Glucose,Whole Blood 160 mg/dL (75-99)
[2016-12-13] MEDS: SODIUM CHLORIDE 0.9% 1,000 ML IV SCH ×2 (06:30→22:59)
[2016-12-13] MEDS: HYDROcodone/APAP 10-325MG 1 EACH TAB PEG/G-TUBE PRN ×3 (07:14→21:15)
[2016-12-13] MEDS: SUCRALFATE 1 GM TAB PO SCH ×4 (07:15→20:47)
[2016-12-13 07:59] LABS: Anisocytosis Slight; Basophils % (A) 0 %; CHCM 32.2; Eosinophils # (A) 0.4 k/uL (0-0.7); Eosinophils % (A) 3 %; HCT 27.2 % (34.0-46.0); HDW 3.44; HGB 8.7 gm/dL (11.4-16.0); Hypochromasia Slight; Luc # (Auto) 0.13; Luc % (Auto) 1; Lymphocytes # (A) 0.3 k/uL (1.0-4.8); Lymphocytes % (A) 3 %; MCHC 32.1 g/dL (31.0-37.0); MCV 90.4 fL (80.0-100.0); Mean Platelet Volume 6.3; Monocytes # (A) 0.5 k/uL (0-1.0); Monocytes % (A) 4 %; Neutrophils # (A) 10.5 k/uL (1.3-7.7); Neutrophils % (A) 89 %; Poikilocytosis Slight; RBC 3.01 m/uL (3.80-5.40); RDW 16.5 % (11.5-15.5); WBC 11.9 k/uL (3.8-10.6); WBC (Perox) 12.12
[2016-12-13 08:31] LABS: ALT 20 U/L (9-52); AST 18 U/L (14-36); Alkaline Phosphatase 60 U/L (38-126); Anion Gap 7 mmol/L; Blood Urea Nitrogen 14 mg/dL (7-17); Calcium 9.2 mg/dL (8.4-10.2); Carbon Dioxide 34 mmol/L (22-30); Chloride 87 mmol/L (98-107); Glucose 134 mg/dL (74-99); Magnesium 1.3 mg/dL (1.6-2.3); Non-African American GFR(MDRD) >60 (>60 ml/min/1.73 sqM); Sodium 128 mmol/L (137-145); Total Bilirubin 0.4 mg/dL (0.2-1.3); Total Protein 6.2 g/dL (6.3-8.2)
[2016-12-13] MEDS: CARVEDILOL 6.25 MG TAB PEG/G-TUBE SCH ×2 (08:55→17:47)
[2016-12-13] MEDS: amLODIPine 5 MG TAB PO SCH (08:56)
[2016-12-13] MEDS: MAGNESIUM OXIDE 400 MG TAB PEG/G-TUBE SCH ×2 (08:56→20:47)
[2016-12-13] MEDS: ASPIRIN 325 MG TAB PEG/G-TUBE SCH (08:56)
[2016-12-13] MEDS: OXYBUTYNIN CHLORIDE 5 MG TAB PEG/G-TUBE SCH ×2 (08:56→20:47)
[2016-12-13] MEDS: POTASSIUM CHLORIDE ORAL LIQUID 40 MEQ/30 ML CUP PEG/G-TUBE SCH ×2 (08:57→20:47)
[2016-12-13] MEDS: FERROUS SULFATE ORAL ELIXIR 300 MG/5 ML CUP PEG/G-TUBE SCH ×2 (08:57→20:46)
[2016-12-13] MEDS: ALBUTEROL NEBULIZED 2.5 MG/3 ML INHALATION SCH ×4 (09:00→19:05)
[2016-12-13] MEDS ORDERED: BISACODYL 10 MG SUPP RECTAL STA (09:03)
[2016-12-13] MEDS: guaiFENesin SYRUP 100MG/5ML 200 MG/10 ML CUP PEG/G-TUBE SCH (09:33)
[2016-12-13] MEDS: LEVOTHYROXINE 75 MCG TAB PEG/G-TUBE SCH (09:33)
[2016-12-13] MEDS: ALPRAZolam 0.25 MG TAB PO SCH ×2 (09:33→20:46)
[2016-12-13] MEDS ORDERED: HYDROcodone/APAP 10-325MG 1 EACH TAB PO ONE (09:57)
[2016-12-13] MEDS: ALTEPLASE 2 MG VIAL (CATHFLO) IV STA ×3 (11:20→17:12)
[2016-12-13 12:01] LABS: Glucose,Whole Blood 168 mg/dL (75-99)
--- NOTE | 2016-12-13 16:43 | P.PN ---
Subjective Principal diagnosis: SOB, squamous cell head/neck cancer Pt seen today in follow up, her lip is red and swollen and painful, pt is requesting more pain meds, she feels cough and SOB are better, only mild indigestion/GERD symptoms since starting carafate. She has been ambulating to the bathroom with walker Objective - Vital Signs Vital signs: Vital Signs Temp 98.1 F 12/13/16 15:00 Pulse 84 12/13/16 16:07 Resp 16 12/13/16 15:00 BP 128/66 12/13/16 15:00 Pulse Ox 92 L 12/13/16 15:00 Intake & Output 12/12/16 12/13/16 12/13/16 18:59 06:59 18:59 Intake Total 660 900 Balance 660 900 Weight 56 kg Intake: IV 250 Piperacillin-Tazobactam 3 50 .375 gm In Dextrose/Water 1 50ml.bag @ 12.5 mls/hr IVPB Q8HR MATHIEU Rx#: [id number] Sodium Chloride 0.9% 1, 200 000 ml @ 50 mls/hr IV . Q20H MATHIEU Rx#:[id number] Tube Feeding 660 500 Other 150 Other: Voiding Method Toilet Toilet - Constitutional General appearance: Present: average body habitus, cooperative, no acute distress - EENT EENT Comment(s): right upper lip notably red, swollen, ulceration under lip visible. - Respiratory Respiratory: bilateral: rales (scattered, improved) - Cardiovascular Heart sounds: normal: S1, S2 - Gastrointestinal General gastrointestinal: Present: normal bowel sounds - Neurologic Neurologic: Present: CNII-XII intact - Musculoskeletal Musculoskeletal: Present: generalized weakness - Psychiatric Psychiatric: Present: A&O x's 3, appropriate affect, intact judgment & insight - Labs CBC & Chem 7: 12/13/16 07:49 12/13/16 07:49 Labs: Abnormal Lab Results - Last 24 Hours (Table) 12/12/16 12/13/16 12/13/16 Range/Units 16:56 00:28 06:20 WBC (3.8-10.6) k/uL RBC (3.80-5.40) m/uL Hgb (11.4-16.0) gm/dL Hct (34.0-46.0) % RDW (11.5-15.5) % Neutrophils # (1.3-7.7) k/uL Lymphocytes # (1.0-4.8) k/uL Sodium (137-145) mmol/L Chloride (98-107) mmol/L Carbon Dioxide (22-30) mmol/L Glucose (74-99) mg/dL POC Glucose (mg/dL) 168 H 153 H 160 H (75-99) mg/dL Magnesium (1.6-2.3) mg/dL Total Protein (6.3-8.2) g/dL Albumin (3.5-5.0) g/dL 12/13/16 12/13/16 12/13/16 Range/Units 07:49 07:49 11:59 WBC 11.9 H (3.8-10.6) k/uL RBC 3.01 L (3.80-5.40) m/uL Hgb 8.7 L (11.4-16.0) gm/dL Hct 27.2 L (34.0-46.0) % RDW 16.5 H (11.5-15.5) % Neutrophils # 10.5 H (1.3-7.7) k/uL Lymphocytes # 0.3 L (1.0-4.8) k/uL Sodium 128 L (137-145) mmol/L Chloride 87 L (98-107) mmol/L Carbon Dioxide 34 H (22-30) mmol/L Glucose 134 H (74-99) mg/dL POC Glucose (mg/dL) 168 H (75-99) mg/dL Magnesium 1.3 L (1.6-2.3) mg/dL Total Protein 6.2 L (6.3-8.2) g/dL Albumin 2.8 L (3.5-5.0) g/dL Microbiology - Last 24 Hours (Table) 12/08/16 05:46 Blood Culture - Preliminary Blood No Growth after 120 hours Assessment and Plan (1) Anemia Narrative/Plan: Stable, no intervention today Status: Chronic (2) Hyponatremia Status: Acute (3) Squamous cell carcinoma, keratinizing Narrative/Plan: Pt will need to be reevaluated by Primary Oncologist prior to resuming any therapy for her malignancy. Status: Chronic Plan: Pt and family want home care for now. Social Work contacted and consult placed. Fentanyl patch increased, will evaluate pain in AM. Cont current ordered medications including sched antianxiety meds and PPI Pt is ok to be discharged home from an Onc standpoint once cleared by Attending and Consulting physicians.
[2016-12-13 17:35] LABS: Glucose,Whole Blood 141 mg/dL (75-99)
[2016-12-13] MEDS: ONDANSETRON 4 MG/2 ML VIAL IVP PRN (18:21)
--- NOTE | 2016-12-13 20:12 | P.PN ---
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 She has received both chemo and radiation treatments. Currently chemotherapy on hold. Oncology following. She presented to the emergency room with complaints of shortness of breath. Patient now saying she also had some heart palpitations. She reports another episode of shortness of breath around 2 :00 this morning. Cardiology will be consulted and she'll be placed on telemetry for monitoring of any arrhythmias. Patient denies any chest pain. Denies any nausea or vomiting. Denies any bowel movement changes or urinary symptoms. She is tolerating PEG tube feedings. Objective - Vital Signs Vital signs: Vital Signs Temp 98.1 F 12/13/16 15:00 Pulse 90 12/13/16 19:17 Resp 16 12/13/16 16:00 BP 128/66 12/13/16 15:00 Pulse Ox 95 12/13/16 19:07 Intake & Output 12/13/16 12/13/16 12/14/16 06:59 18:59 06:59 Intake Total 900 880 Balance 900 880 Weight 56.6 kg Intake: IV 250 Piperacillin-Tazobactam 3 50 .375 gm In Dextrose/Water 1 50ml.bag @ 12.5 mls/hr IVPB Q8HR MATHIEU Rx#: [id number] Sodium Chloride 0.9% 1, 200 000 ml @ 50 mls/hr IV . Q20H MATHIEU Rx#:[id number] Tube Feeding 500 880 Other 150 Other: Voiding Method Toilet Toilet # Voids 1 - Exam In general patient is alert and oriented in no apparent distress HEENT no new findings Neck is supple no JVD no goiter no lymphadenopathy Chest exam reveals coarse crackles bilaterally no wheezing Heart exam reveals regular heart sounds no gallops no murmurs Abdomen is soft nontender no organomegaly Extremity exam reveals no edema - Labs CBC & Chem 7: 12/13/16 07:49 12/13/16 07:49 Labs: Abnormal Lab Results - Last 24 Hours (Table) 12/13/16 12/13/16 12/13/16 Range/Units 00:28 06:20 07:49 WBC 11.9 H (3.8-10.6) k/uL RBC 3.01 L (3.80-5.40) m/uL Hgb 8.7 L (11.4-16.0) gm/dL Hct 27.2 L (34.0-46.0) % RDW 16.5 H (11.5-15.5) % Neutrophils # 10.5 H (1.3-7.7) k/uL Lymphocytes # 0.3 L (1.0-4.8) k/uL Sodium (137-145) mmol/L Chloride (98-107) mmol/L Carbon Dioxide (22-30) mmol/L Glucose (74-99) mg/dL POC Glucose (mg/dL) 153 H 160 H (75-99) mg/dL Magnesium (1.6-2.3) mg/dL Total Protein (6.3-8.2) g/dL Albumin (3.5-5.0) g/dL 12/13/16 12/13/16 12/13/16 Range/Units 07:49 11:59 17:33 WBC (3.8-10.6) k/uL RBC (3.80-5.40) m/uL Hgb (11.4-16.0) gm/dL Hct (34.0-46.0) % RDW (11.5-15.5) % Neutrophils # (1.3-7.7) k/uL Lymphocytes # (1.0-4.8) k/uL Sodium 128 L (137-145) mmol/L Chloride 87 L (98-107) mmol/L Carbon Dioxide 34 H (22-30) mmol/L Glucose 134 H (74-99) mg/dL POC Glucose (mg/dL) 168 H 141 H (75-99) mg/dL Magnesium 1.3 L (1.6-2.3) mg/dL Total Protein 6.2 L (6.3-8.2) g/dL Albumin 2.8 L (3.5-5.0) g/dL Microbiology - Last 24 Hours (Table) 12/08/16 05:46 Blood Culture - Preliminary Blood No Growth after 120 hours Assessment and Plan Plan: 1. Shortness of breath: Possibly related to tracheobronchitis. Sputum culture growing Pseudomonas. Change antibiotics to IV Zosyn. Chest x-ray negative. D- dimer negative. No cardiac arrhythmias on telemetry 2. Hyponatremia: Sodium 121 on admission. Zestoretic on hold. Also could be a side effect from her chemo medication. Patient receiving IV fluids. Sodium 125. Continue to monitor 3. 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 Oncology consulted. Chemo treatment currently placed on hold. will await further away oncology recommendations 4. Hypomagnesemia: Magnesium 1.0. Patient's magnesium is continuously low. She is receiving supplement. Also will see if dietitian can adjust tube feedings 5. Anemia with known iron deficiency anemia and possibly chemo-induced anemia. Continue iron supplement. Continue to monitor hemoglobin. Hemoglobin 8.2. Patient did receive iron supplement 6. Hypochloremia: Continue monitor chloride level. Zestoretic on hold. Showing improvement with fluids 7. Diabetes mellitus type 2: Metformin on hold. Add sliding scale coverage with Accu-Cheks every before meals and at bedtime 8. Essential hypertension: Blood pressures are showing improvement with the addition of Norvasc and Coreg was increased by cardiology 9. Hyperlipidemia continue Lipitor 10. History of coronary artery disease with previous cardiac stents 11. Hypothyroidism continue Synthroid DVT prophylaxis SCDs Continue was current management try to increase ambulation
[2016-12-13] MEDS: ATORVASTATIN 20 MG TAB PEG/G-TUBE SCH (20:46)
[2016-12-13 23:59] LABS: Glucose,Whole Blood 166 mg/dL (75-99)
[2016-12-14] MEDS: PIPERACILLIN-TAZOBACTAM 3.375 GM in DEXTROSE/WATER 1 50ML.BAG IVPB SCH ×4 (00:07→23:12)
[2016-12-14] MEDS: INSULIN LISPRO (humaLOG) 300 UNIT/3 ML VIAL SQ SCH ×4 (00:08→18:00)
[2016-12-14 06:00] LABS: Glucose,Whole Blood 147 mg/dL (75-99)
[2016-12-14] MEDS: HYDROcodone/APAP 10-325MG 1 EACH TAB PEG/G-TUBE PRN ×4 (06:02→20:08)
[2016-12-14 06:36] LABS: Anisocytosis Slight; Basophils % (A) 0 %; CH 28.9; CHCM 31.1; Eosinophils # (A) 0.5 k/uL (0-0.7); Eosinophils % (A) 4 %; HCT 30.3 % (34.0-46.0); HGB 9.2 gm/dL (11.4-16.0); Hypochromasia Moderate; Luc # (Auto) 0.18; Luc % (Auto) 2; Lymphocytes # (A) 0.5 k/uL (1.0-4.8); Lymphocytes % (A) 4 %; MCH 28.3 pg (25.0-35.0); MCHC 30.4 g/dL (31.0-37.0); MCV 93.1 fL (80.0-100.0); Mean Platelet Volume 6.7; Monocytes # (A) 0.5 k/uL (0-1.0); Monocytes % (A) 5 %; Neutrophils # (A) 10.1 k/uL (1.3-7.7); Neutrophils % (A) 86 %; RBC 3.26 m/uL (3.80-5.40); RDW 16.7 % (11.5-15.5); WBC 11.8 k/uL (3.8-10.6); WBC (Perox) 12.77
[2016-12-14 06:47] LABS: ALT 24 U/L (9-52); AST 19 U/L (14-36); Alkaline Phosphatase 69 U/L (38-126); Anion Gap 8 mmol/L; Blood Urea Nitrogen 17 mg/dL (7-17); Calcium 9.6 mg/dL (8.4-10.2); Carbon Dioxide 36 mmol/L (22-30); Chloride 87 mmol/L (98-107); Glucose 152 mg/dL (74-99); Magnesium 1.2 mg/dL (1.6-2.3); Non-African American GFR(MDRD) >60 (>60 ml/min/1.73 sqM); Potassium 4.5 mmol/L (3.5-5.1); Sodium 131 mmol/L (137-145); Total Bilirubin 0.5 mg/dL (0.2-1.3); Total Protein 6.7 g/dL (6.3-8.2)
[2016-12-14] MEDS: ALBUTEROL NEBULIZED 2.5 MG/3 ML INHALATION SCH ×4 (08:41→21:31)
[2016-12-14] MEDS: SODIUM CHLORIDE 0.9% 1,000 ML IV SCH (08:45)
[2016-12-14 11:33] LABS: Glucose,Whole Blood 178 mg/dL (75-99)
[2016-12-14] MEDS: MAGNESIUM OXIDE 400 MG TAB PEG/G-TUBE SCH ×2 (12:08→20:08)
[2016-12-14] MEDS: CHOLECALCIFEROL 1,000 UNIT TAB PEG/G-TUBE SCH (12:08)
[2016-12-14] MEDS: CARVEDILOL 6.25 MG TAB PEG/G-TUBE SCH ×2 (12:09→17:34)
[2016-12-14] MEDS: OXYBUTYNIN CHLORIDE 5 MG TAB PEG/G-TUBE SCH ×2 (12:09→20:08)
[2016-12-14] MEDS: ASPIRIN 325 MG TAB PEG/G-TUBE SCH (12:09)
[2016-12-14] MEDS: SUCRALFATE 1 GM TAB PO SCH ×4 (12:09→20:08)
[2016-12-14] MEDS: ALPRAZolam 0.25 MG TAB PO SCH ×2 (12:09→20:07)
[2016-12-14] MEDS: LEVOTHYROXINE 75 MCG TAB PEG/G-TUBE SCH (12:09)
[2016-12-14] MEDS: amLODIPine 5 MG TAB PO SCH (12:10)
[2016-12-14] MEDS: guaiFENesin SYRUP 100MG/5ML 200 MG/10 ML CUP PEG/G-TUBE SCH (12:11)
[2016-12-14] MEDS: FERROUS SULFATE ORAL ELIXIR 300 MG/5 ML CUP PEG/G-TUBE SCH ×2 (12:11→20:08)
[2016-12-14] MEDS: POTASSIUM CHLORIDE ORAL LIQUID 40 MEQ/30 ML CUP PEG/G-TUBE SCH ×2 (12:11→20:08)
[2016-12-14 17:05] LABS: Glucose,Whole Blood 143 mg/dL (75-99)
--- NOTE | 2016-12-14 17:56 | P.PN ---
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 She has received both chemo and radiation treatments. Currently chemotherapy on hold. Oncology following. She presented to the emergency room with complaints of shortness of breath. Patient now saying she also had some heart palpitations. Cardiology will be consulted and she'll be placed on telemetry for monitoring of any arrhythmias. Patient denies any chest pain. Denies any nausea or vomiting. Denies any bowel movement changes or urinary symptoms. She is tolerating PEG tube feedings. Objective - Vital Signs Vital signs: Vital Signs Temp 97.7 F 12/14/16 14:56 Pulse 90 12/14/16 17:45 Resp 16 12/14/16 16:00 BP 148/66 12/14/16 14:56 Pulse Ox 91 L 12/14/16 14:56 Intake & Output 12/13/16 12/14/16 12/14/16 18:59 06:59 18:59 Intake Total 880 1055 825 Balance 880 1055 825 Weight 56.6 kg 57 kg Intake: IV 400 Sodium Chloride 0.9% 1, 400 000 ml @ 50 mls/hr IV . Q20H MATHIEU Rx#:[id number] Intake, IV Titration 50 Amount Piperacillin-Tazobactam 3 50 .375 gm In Dextrose/Water 1 50ml.bag @ 12.5 mls/hr IVPB Q8HR MATHIEU Rx#: [id number] Tube Feeding 880 605 825 Other: Voiding Method Toilet Toilet Toilet # Voids 1 2 # Bowel Movements 1 - Exam In general patient is alert and oriented in no apparent distress HEENT no new findings Neck is supple no JVD no goiter no lymphadenopathy Chest exam reveals coarse crackles bilaterally no wheezing Heart exam reveals regular heart sounds no gallops no murmurs Abdomen is soft nontender no organomegaly Extremity exam reveals no edema - Labs CBC & Chem 7: 12/14/16 06:10 12/14/16 06:10 Labs: Abnormal Lab Results - Last 24 Hours (Table) 12/13/16 12/14/16 12/14/16 Range/Units 23:57 05:58 06:10 WBC 11.8 H (3.8-10.6) k/uL RBC 3.26 L (3.80-5.40) m/uL Hgb 9.2 L (11.4-16.0) gm/dL Hct 30.3 L (34.0-46.0) % MCHC 30.4 L (31.0-37.0) g/dL RDW 16.7 H (11.5-15.5) % Neutrophils # 10.1 H (1.3-7.7) k/uL Lymphocytes # 0.5 L (1.0-4.8) k/uL Sodium (137-145) mmol/L Chloride (98-107) mmol/L Carbon Dioxide (22-30) mmol/L Glucose (74-99) mg/dL POC Glucose (mg/dL) 166 H 147 H (75-99) mg/dL Magnesium (1.6-2.3) mg/dL Albumin (3.5-5.0) g/dL 12/14/16 12/14/16 12/14/16 Range/Units 06:10 11:14 17:04 WBC (3.8-10.6) k/uL RBC (3.80-5.40) m/uL Hgb (11.4-16.0) gm/dL Hct (34.0-46.0) % MCHC (31.0-37.0) g/dL RDW (11.5-15.5) % Neutrophils # (1.3-7.7) k/uL Lymphocytes # (1.0-4.8) k/uL Sodium 131 L (137-145) mmol/L Chloride 87 L (98-107) mmol/L Carbon Dioxide 36 H (22-30) mmol/L Glucose 152 H (74-99) mg/dL POC Glucose (mg/dL) 178 H 143 H (75-99) mg/dL Magnesium 1.2 L (1.6-2.3) mg/dL Albumin 3.1 L (3.5-5.0) g/dL Microbiology - Last 24 Hours (Table) 12/08/16 05:46 Blood Culture - Final Blood No Growth after 144 hours Assessment and Plan Plan: 1. Shortness of breath: Possibly related to tracheobronchitis. Sputum culture growing Pseudomonas. Change antibiotics to IV Zosyn. Chest x-ray negative. D- dimer negative. No cardiac arrhythmias on telemetry 2. Hyponatremia: Sodium 121 on admission. Zestoretic on hold. Also could be a side effect from her chemo medication. Patient receiving IV fluids. Sodium 131. Continue to monitor 3. 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 Oncology consulted. Chemo treatment currently placed on hold. will await further away oncology recommendations 4. Hypomagnesemia: Magnesium 1.0. Patient's magnesium is continuously low. She is receiving supplement. Also will see if dietitian can adjust tube feedings 5. Anemia with known iron deficiency anemia and possibly chemo-induced anemia. Continue iron supplement. Continue to monitor hemoglobin. Hemoglobin 8.2. Patient did receive iron supplement 6. Hypochloremia: Continue monitor chloride level. Zestoretic on hold. Showing improvement with fluids 7. Diabetes mellitus type 2: Metformin on hold. Add sliding scale coverage with Accu-Cheks every before meals and at bedtime 8. Essential hypertension: Blood pressures are showing improvement with the addition of Norvasc and Coreg was increased by cardiology 9. Hyperlipidemia continue Lipitor 10. History of coronary artery disease with previous cardiac stents 11. Hypothyroidism continue Synthroid DVT prophylaxis SCDs Continue was current management try to increase ambulation
[2016-12-14] MEDS: ATORVASTATIN 20 MG TAB PEG/G-TUBE SCH (20:08)
[2016-12-14] MEDS: ONDANSETRON 4 MG/2 ML VIAL IVP PRN (20:53)
[2016-12-15 00:08] LABS: Glucose,Whole Blood 134 mg/dL (75-99)
[2016-12-15] MEDS: INSULIN LISPRO (humaLOG) 300 UNIT/3 ML VIAL SQ SCH ×3 (00:33→13:19)
[2016-12-15] MEDS: HYDROcodone/APAP 10-325MG 1 EACH TAB PEG/G-TUBE PRN ×2 (03:10→09:22)
[2016-12-15 06:04] LABS: Glucose,Whole Blood 180 mg/dL (75-99)
[2016-12-15 06:36] LABS: Anisocytosis Slight; Basophils % (A) 0 %; CH 29.1; Eosinophils # (A) 0.3 k/uL (0-0.7); Eosinophils % (A) 3 %; HCT 26.9 % (34.0-46.0); HDW 3.63; HGB 8.6 gm/dL (11.4-16.0); Hypochromasia Slight; Luc # (Auto) 0.16; Luc % (Auto) 1; Lymphocytes # (A) 0.3 k/uL (1.0-4.8); Lymphocytes % (A) 3 %; MCH 29.1 pg (25.0-35.0); MCV 90.9 fL (80.0-100.0); Mean Platelet Volume 6.5; Monocytes # (A) 0.5 k/uL (0-1.0); Monocytes % (A) 4 %; Neutrophils % (A) 89 %; Poikilocytosis Slight; RBC 2.96 m/uL (3.80-5.40); RDW 16.3 % (11.5-15.5); WBC 11.3 k/uL (3.8-10.6); WBC (Perox) 11.46
[2016-12-15 06:48] LABS: ALT 24 U/L (9-52); AST 19 U/L (14-36); Alkaline Phosphatase 59 U/L (38-126); Anion Gap 7 mmol/L; Blood Urea Nitrogen 17 mg/dL (7-17); Calcium 9.3 mg/dL (8.4-10.2); Carbon Dioxide 38 mmol/L (22-30); Chloride 87 mmol/L (98-107); Glucose 167 mg/dL (74-99); Magnesium 1.1 mg/dL (1.6-2.3); Non-African American GFR(MDRD) >60 (>60 ml/min/1.73 sqM); Potassium 4.3 mmol/L (3.5-5.1); Sodium 132 mmol/L (137-145); Total Bilirubin 0.4 mg/dL (0.2-1.3); Total Protein 6.3 g/dL (6.3-8.2)
[2016-12-15 08:44] VITALS: RESP 18; TEMP 97.6
[2016-12-15] MEDS: MAGNESIUM OXIDE 400 MG TAB PEG/G-TUBE SCH (09:21)
[2016-12-15] MEDS: OXYBUTYNIN CHLORIDE 5 MG TAB PEG/G-TUBE SCH (09:21)
[2016-12-15] MEDS: CARVEDILOL 6.25 MG TAB PEG/G-TUBE SCH (09:21)
[2016-12-15] MEDS: ASPIRIN 325 MG TAB PEG/G-TUBE SCH (09:21)
[2016-12-15] MEDS: ALPRAZolam 0.25 MG TAB PO SCH (09:22)
[2016-12-15] MEDS: amLODIPine 5 MG TAB PO SCH (09:22)
[2016-12-15] MEDS: SUCRALFATE 1 GM TAB PO SCH ×2 (09:22→13:18)
[2016-12-15] MEDS: FERROUS SULFATE ORAL ELIXIR 300 MG/5 ML CUP PEG/G-TUBE SCH (09:22)
[2016-12-15] MEDS: LEVOTHYROXINE 75 MCG TAB PEG/G-TUBE SCH (09:22)
[2016-12-15] MEDS: guaiFENesin SYRUP 100MG/5ML 200 MG/10 ML CUP PEG/G-TUBE SCH (09:22)
[2016-12-15] MEDS: POTASSIUM CHLORIDE ORAL LIQUID 40 MEQ/30 ML CUP PEG/G-TUBE SCH (09:22)
[2016-12-15] MEDS: PIPERACILLIN-TAZOBACTAM 3.375 GM in DEXTROSE/WATER 1 50ML.BAG IVPB SCH (09:23)
[2016-12-15] MEDS: ALBUTEROL NEBULIZED 2.5 MG/3 ML INHALATION SCH ×2 (09:24→12:47)
--- NOTE | 2016-12-15 11:08 | P.DS ---
Providers Date of admission: 12/08/16 05:34 Expected date of discharge: 12/15/16 Attending physician: Meseret Duran Consults: 12/09/16 10:50 Consult Physician Routine Consulting Provider: Patrick Boswell Consult Reason/Comments: shortness of breath, palpatations Do you want consulting provider notified?: Yes Dr. Sweeney Primary care physician: Lisa Welia [facility] Course: Discharge diagnosis 1. Shortness of breath: Possibly related to tracheobronchitis. Sputum culture growing Pseudomonas. Change antibiotics to IV Zosyn. Chest x-ray negative. D- dimer negative. No cardiac arrhythmias on telemetry. Patient will be discharged home with Levaquin 500 mg daily for 7 days 2. Hyponatremia: Sodium 121 on admission. Also could be a side effect from her chemo medication. Patient receiving IV fluids. Sodium 131. Continue to monitor. Sodium level at discharge 132. Zestoretic discontinued. 3. 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 Oncology consulted. Chemo treatment currently placed on hold. will await further away oncology recommendations 4. Hypomagnesemia: Magnesium level continuously low. discharge magnesium was 1.1. Patient will meet receive magnesium sulfate 2 g before discharge. We'll increase her magnesium 400-3 times a day at home 5. Anemia with known iron deficiency anemia and possibly chemo-induced anemia. Continue iron supplement. Continue to monitor hemoglobin. Hemoglobin 8.2. Patient did receive iron supplement 6. Hypochloremia: Continue monitor chloride level. Zestoretic on hold. Showing improvement with fluids 7. Diabetes mellitus type 2: Metformin on hold. Add sliding scale coverage with Accu-Cheks every before meals and at bedtime 8. Essential hypertension: Blood pressures are showing improvement with the addition of Norvasc and Coreg was increased by cardiology. Restart lisinopril at 10 mg daily 9. Hyperlipidemia continue Lipitor 10. History of coronary artery disease with previous cardiac stents 11. 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 She has received both chemo and radiation treatments. Currently chemotherapy on hold. Oncology following. She presented to the emergency room with complaints of shortness of breath. Patient now saying she also had some heart palpitations. Cardiology will be consulted and she'll be placed on telemetry for monitoring of any arrhythmias. Patient denies any chest pain. Denies any nausea or vomiting. Denies any bowel movement changes or urinary symptoms. She is tolerating PEG tube feedings. Evaluated by cardiology. There is no evidence of any arrhythmias. They did increase her Coreg during this admission. Norvasc was also increased to help blood pressure control. Patient has shown improvement. Has been cleared by consulting physicians. She will follow-up with oncology. She is tolerating her tube feedings. Her magnesium level and electrolytes have continuously been low. Zestoretic was discontinued. She did show improvement with IV fluids. And also her magnesium will be increased to 3 times a day. Oncology had adjusted pain medications. Patient is doing better. And she is stable for discharge. Please refer to chart for any further details. Also note that her shortness of breath was likely related to bronchitis no evidence of pneumonia on chest x-ray. Culture did grow pseudomonas. She'll continue Levaquin for 7 more days. Shortness of breath has resolved. Patient Condition at Discharge: Stable Plan - Discharge Summary New Discharge Prescriptions: ALPRAZolam [Xanax] 0.25 mg PO BID PRN #30 tab PRN Reason: Anxiety Carvedilol [Coreg] 6.25 mg PEG/G-TUBE BID-W/MEALS #60 tab Levofloxacin [Levaquin] 500 mg PO DAILY #7 tab Lisinopril [Zestril] 10 mg PO DAILY #30 tab Magnesium Oxide 400 mg PEG/G-TUBE TID #90 tablet amLODIPine [Norvasc] 5 mg PO DAILY #30 tab fentaNYL 50MCG/HR PATCH [Duragesic 50MCG/HR] 1 patch TRANSDERM Q72H #10 patch Discharge Medication List Aspirin 325 mg PEG/G-TUBE DAILY 12/08/16 [History] Cholecalciferol [Vitamin D3] 5,000 unit PEG/G-TUBE DAILY 12/08/16 [History] Ferrous Sulfate [Iron (65 MG Elemental)] 325 mg PEG/G-TUBE BID 12/08/16 [History ] Hydrocodone/Acetaminophen [[place] 10-325] 1 tab PEG/G-TUBE Q4H 12/08/16 [History] Levothyroxine Sodium [Synthroid] 75 mcg PEG/G-TUBE DAILY 12/08/16 [History] Mucinex Liquid 10 ml PEG/G-TUBE DAILY PRN 12/08/16 [History] Ondansetron HCl [Zofran Oral Soln] 8 mg PEG/G-TUBE BID 12/08/16 [History] Ondansetron HCl [Zofran] 8 mg PEG/G-TUBE DAILY PRN 12/08/16 [History] Oxybutynin Chloride 5 mg PEG/G-TUBE BID 12/08/16 [History] Potassium Chloride [Klor-Con] 20 meq PEG/G-TUBE BID 12/08/16 [History] Simvastatin [Zocor] 40 mg PEG/G-TUBE HS 12/08/16 [History] metFORMIN HCL [Glucophage] 500 mg PEG/G-TUBE HS 12/08/16 [History] ALPRAZolam [Xanax] 0.25 mg PO BID PRN #30 tab 12/15/16 [Rx] Carvedilol [Coreg] 6.25 mg PEG/G-TUBE BID-W/MEALS #60 tab 12/15/16 [Rx] Levofloxacin [Levaquin] 500 mg PO DAILY #7 tab 12/15/16 [Rx] Lisinopril [Zestril] 10 mg PO DAILY #30 tab 12/15/16 [Rx] Magnesium Oxide 400 mg PEG/G-TUBE TID #90 tablet 12/15/16 [Rx] amLODIPine [Norvasc] 5 mg PO DAILY #30 tab 12/15/16 [Rx] fentaNYL 50MCG/HR PATCH [Duragesic 50MCG/HR] 1 patch TRANSDERM Q72H #10 patch [Rx] Follow up Appointment(s)/Referral(s): Desiree Hassan MD [STAFF PHYSICIAN] - 12/21/16 1:30 pm Lisa Hassan DO [Primary Care Provider] - 1 Week Activity/Diet/Wound Care/Special Instructions: [facility] Diet: continue tube feedings Discharge Disposition: HOME WITH HOME HEALTH SERVICES
[2016-12-15] MEDS: MAGNESIUM SULFATE-D5W PMX 1 GM in DEXTROSE/WATER 1 100ML.BAG IVPB SCH ×2 (11:15→13:15)
[2016-12-15 11:58] LABS: Glucose,Whole Blood 169 mg/dL (75-99)
[2016-12-15 12:01] VITALS: BP 146/71
[2016-12-15 13:04] VITALS: PULSE 86
[2016-12-15] MEDS: CHOLECALCIFEROL 1,000 UNIT TAB PEG/G-TUBE SCH (13:18)
== END 2016-12-15 16:09 | disposition home health service (06) | DRG 202 ==
LOC: EC 04:02 → 4MS4W 05:34 → 5ONC 10:43
PROVIDERS: ADMIT Internal Medicine; ATTEND Internal Medicine
DX: J40 Bronchitis, not specified as acute or chronic (principal); E87.1 Hypo-osmolality and hyponatremia; E87.8 Other disorders of electrolyte and fluid balance, not elsewhere classified; I11.0 Hypertensive heart disease with heart failure; I50.9 Heart failure, unspecified; R13.10 Dysphagia, unspecified; E11.9 Type 2 diabetes mellitus without complications; D50.9 Iron deficiency anemia, unspecified; C00.9 Malignant neoplasm of lip, unspecified; E63.9 Nutritional deficiency, unspecified; E83.42 Hypomagnesemia; E03.9 Hypothyroidism, unspecified; E78.5 Hyperlipidemia, unspecified; I25.10 Atherosclerotic heart disease of native coronary artery without angina pectoris; K02.9 Dental caries, unspecified; Z79.82 Long term (current) use of aspirin; Z79.84 Long term (current) use of oral hypoglycemic drugs; Z79.899 Other long term (current) drug therapy; Z82.49 Family history of ischemic heart disease and other diseases of the circulatory system; Z85.05 Personal history of malignant neoplasm of liver; Z92.21 Personal history of antineoplastic chemotherapy; Z92.3 Personal history of irradiation; Z93.1 Gastrostomy status; Z95.5 Presence of coronary angioplasty implant and graft
CPT/HCPCS: 36415; 71020; 80053; 82550; 82553; 82607; 82728; 82747; 83036; 83540; 83550; 83735; 84484; 85025; 85045; 85379; 85610; 85730; 87040; 87070; 87077; 87186; 87205; 93005; 93306; 94640; 94760; 96365; 99285